=== PATIENT | male | born 1940 | race Caucasian/White ===

== ENCOUNTER 2017-03-13 13:06 | Observation (INO) | payer MEDICARE ==
[~2017-03-13] VITALS: Ht 180.3 cm; Wt 104.0 kg
[~2017-03-13 13:06] MED LIST: CITA40TA4 PO; COUM7.5T PO; DOCU1CAP39 PO; ENOX100P SQ; GABA100C4 PO; LISI40TA PO; NOVONP2 SQ; NOVORP2 SQ; OMEP20CA2 PO; OXYC1TAB63 PO; PERC5TAB12 PO; VITA10003 PO; WARF-18 PO; WARF-23 PO; ZOCO40TA PO
[2017-03-13 13:09] VITALS: BP 127/78; PULSE 85; RESP 18; TEMP 98.4; O2SAT 96
[2017-03-13] MEDS ORDERED: SODIUM CHLORIDE 0.9% FLUSH 10 ML FLUSH IVF PRN (13:30)
[2017-03-13] MEDS ORDERED: ACETAMINOPHEN 325 MG TAB PO ONE (13:30)
[2017-03-13] MEDS ORDERED: PROCHLORPERAZINE INJ 10 MG/2 ML VIAL IVP ONE (13:30)
[2017-03-13] MEDS ORDERED: diphenhydrAMINE HCL 50 MG/ML VIAL IVP ONE (13:30)
[2017-03-13] MEDS ORDERED: MORPHINE SULFATE 4 MG/ML INJ IV PUSH ONE (13:30)
[2017-03-13] MEDS ORDERED: SODIUM CHLOR 0.9% 1000 ML INJ 1,000 ML IV SCH (13:30)
[2017-03-13 13:32] VITALS: O2SAT 94
--- NOTE | 2017-03-13 13:41 | PD ---
HPI Chief Complaint: Neuro Symptoms/ Deficits Time Seen by Provider: 13:19 Travel History International Travel<30 days: No Contact w/Intl Traveler<30days: No Traveled to known affect area: No History of Present Illness HPI The patient is a 76-year-old male who presents to the emergency department for headache. The patient states he has had intermittent headaches for the last 6 weeks, they worsen the morning, but present throughout the day. The headaches do wax and wane and occasionally associated with vision changes and generalized weakness the lower extremities. The patient was on vacation in [place], [place], when he was seen in the emergency department and underwent a CT the brain and MRI the brain which are apparently were unremarkable according to the . The patient return him and was seen by his neurologist, Dr. Barbosa, as well as their mid-level practitioner last week. He was prescribed medications, however, was unable to take the medication secondary to interference with his current medications for diabetes. The patient continues to have headaches, is also had a decline in his memory according to the . The patient went to restoration earlier today, however, was unable to ambulate out of the restoration, the patient required 4 people to help him get to the car. The patient denies any focal deficits, but does complain of generalized weakness the lower extremities. The also states the patient had some dysarthria earlier today which has resolved. Symptoms are moderate, there are no current alleviating or exacerbating factors. He denies any fever or posterior neck pain. PFSH Past Medical History Hx Anticoagulant Therapy: Yes (WARFARIN) Atrial Fibrillation: Yes Anxiety: No Depression: Yes Heart Rhythm Problems: Yes Cancer: Yes (PROSTATE) Cardiac Catheterization: Yes Cardiovascular Problems: Yes ([place]ABG, [place]) High Cholesterol: Yes Chemotherapy: No Chest Pain: Yes Congestive Heart Failure: No Cerebrovascular Accident: Yes Coronary Artery Disease: Yes Diabetes: Yes Patient Takes Glucophage: No Endocrine: Yes Gastrointestinal Disorders: Yes GERD: Yes Glaucoma: No Genitourinary: Yes (URINARY INCONTANCE) Hepatitis: No Hiatal Hernia: No Hypertension: Yes Immune Disorder: No Implanted Vascular Access Dvce: Yes Medical other: Yes (SCAR TISSUE IN BLADDER, URETHRA, CAN'T BE CATHETERIZED) Musculoskeletal: Yes (RLS) Neurologic: Yes Psychiatric: Yes Reproductive: No Respiratory: Yes Integumentary: No Migraines: No Radiation Therapy: No Renal Failure: No Seizures: No Thyroid Disease: No Triglycerides - High: Yes Ulcer: No Tetanus Vaccination: < 5 Years Influenza Vaccination: Yes Past Surgical History Body Medical Devices: CARDIAC STENT X1 Cardiac Surgery: Yes (STENT PLACEMENT, CARDIAC CATHERIZATION, MITRAL REPAIR, AORTIC VALVE REPLACE) Coronary Artery Bypass Graft: Yes Coronary Stent: Yes Eye Surgery: Yes (BILATERAL CATARACT SURGERY) Genitourinary Surgery: Yes (PROSTATECTOMY, bladder surgery ) Joint Replacement: Yes (LEFT KNEE) Pacemaker: No Thoracic Surgery: Yes (2 WAY BYPASS) Other Surgery: Yes (PROSTATE,LEFT KNEE,BACK,BILAT SHOULDER, BILAT CARPAL TUNNEL ) Social History Alcohol Use: No (DENIES) Tobacco Use: No (DENIES) Substance Use: No Allergies-Medications (Allergen,Severity, Reaction): Coded Allergies: Unable to Assess (Unverified Allergy, Unknown, 12/14/16) obtunded No Known Allergies (Verified , 04/01/16) Reported Meds & Prescriptions Reported Meds & Active Scripts Active Percocet (Oxycodone-Acetaminophen) 5-325 mg Tab 1 Tab PO Q6H PRN Coumadin (Warfarin) 7.5 Mg Tab 7.5 Mg PO DAILY@16 30 Days Lovenox Inj (Enoxaparin Sodium) 100 Mg/Ml Syr 100 Mg SQ BID 5 Days Dok (Docusate Sodium) 100 Mg Cap 100 Mg PO BID 30 Days Oxycodone-Acetaminophen 5-325 mg Tab 1 Tab PO Q6H PRN Reported Novolin R Inj (Insulin Human Regular) 1,000 Unit/10 Ml Vial 15 Units SQ BID Novolin N Inj (Insulin Human NPH) 1,000 Unit/10 Ml Vial 30 Units SQ BID Warfarin 5 Mg Tab 5 Mg PO MOWEDFRI Warfarin 2.5 Mg Tab 2.5 Mg PO SUTUESTHURSSAT Zocor (Simvastatin) 40 Mg Tab 40 Mg PO HS Omeprazole 20 Mg Cap 20 Mg PO HS Lisinopril 40 Mg Tab 40 Mg PO DAILY Gabapentin 100 Mg Cap 100 Mg PO HS Citalopram (Citalopram Hydrobromide) 40 Mg Tab 40 Mg PO DAILY Vitamin D-3 (Cholecalciferol) 1,000 Unit Tab 5,000 Units PO DAILY Review of Systems Except as stated in HPI: all other systems reviewed are Neg General / Constitutional: No: Fever Eyes: Positive: Blurred Vision (intermittent, currently resolved) HENT: Positive: Headaches, No: Neck Pain Cardiovascular: No: Chest Pain or Discomfort Respiratory: No: Shortness of Breath Gastrointestinal: No: Nausea, Vomiting, Abdominal Pain Musculoskeletal: Positive: Weakness (weakness the lower extremities bilaterally ) Neurologic: Positive: Weakness (weakness to lower extremity is bilaterally), Headache, Change in Mentation, No: Paresthesia, Sensory Disturbance Physical Exam Narrative GENERAL: Awake, alert, nontoxic-appearing 76-year-old male who appears his stated age and is in no acute respiratory distress. SKIN: Focused skin assessment warm/dry. HEAD: Atraumatic. Normocephalic. EYES: Pupils equal and round. 3 mm bilateral and reactive. EOMs are intact. Patient is able to see fingers at a distance of 2 feet without difficulty. ENT: No nasal bleeding or discharge. Mucous membranes pink and moist. NECK: Trachea midline. No JVD. No meningeal signs. CARDIOVASCULAR: Regular rate and rhythm. No murmur appreciated. RESPIRATORY: No accessory muscle use. Clear to auscultation. Breath sounds equal bilaterally. GASTROINTESTINAL: Abdomen soft, obese, small area of ecchymosis anterior right abdomen secondary to previous injection. MUSCULOSKELETAL: No obvious deformities. No clubbing. No cyanosis. No edema. NEUROLOGICAL: Awake and alert. No obvious cranial nerve deficits. Motor grossly within normal limits. Normal speech. No drift of the upper extremities. Unable to hold his legs up off the bed for more than 2 seconds bilaterally. Alert and oriented 3. No dysarthria noted upon speech. PSYCHIATRIC: Appropriate mood and affect; insight and judgment normal. Data Data Last Documented VS Vital Signs Date Time Temp Pulse Resp B/P (MAP) Pulse Ox O2 Delivery O2 Flow Rate FiO2 03/13/17 13:32 94 Room Air 03/13/17 13:27 77 18 03/13/17 13:09 98.4 Orders Orders Complete Blood Count With Diff (03/13/17 13:30) Comprehensive Metabolic Panel (03/13/17 13:30) Westergren Sedimentation Rate (03/13/17 13:30) C-Reactive Protein (Crp) (03/13/17 13:30) Prothrombin Time / Inr (Pt) (03/13/17 13:30) Act Partial Throm Time (Ptt) (03/13/17 13:30) Ct Brain W/O Iv Contrast(Rout) (03/13/17 13:30) Ecg Monitoring (03/13/17 13:30) Iv Access Insert/Monitor (03/13/17 13:30) Oximetry (03/13/17 13:30) Sodium Chloride 0.9% Flush (Ns Flush) (03/13/17 13:30) Acetaminophen (Tylenol) (03/13/17 13:30) Prochlorperazine Inj (Compazine Inj) (03/13/17 13:30) Diphenhydramine Inj (Benadryl Inj) (03/13/17 13:30) Morphine Inj (Morphine Inj) (03/13/17 13:30) Sodium Chlor 0.9% 1000 Ml Inj (Ns 1000 M (03/13/17 13:30) Admit Order (Ed Use Only) (03/13/17 15:27) Labs Laboratory Tests Test 03/13/17 13:30 White Blood Count 9.0 TH/MM3 Red Blood Count 4.71 MIL/MM3 Hemoglobin 14.3 GM/DL Hematocrit 40.9 % Mean Corpuscular Volume 86.9 FL Mean Corpuscular Hemoglobin 30.4 PG Mean Corpuscular Hemoglobin Concent 35.0 % Red Cell Distribution Width 14.5 % Platelet Count 227 TH/MM3 Mean Platelet Volume 9.2 FL Neutrophils (%) (Auto) 77.4 % Lymphocytes (%) (Auto) 12.4 % Monocytes (%) (Auto) 7.0 % Eosinophils (%) (Auto) 2.2 % Basophils (%) (Auto) 1.0 % Neutrophils # (Auto) 7.0 TH/MM3 Lymphocytes # (Auto) 1.1 TH/MM3 Monocytes # (Auto) 0.6 TH/MM3 Eosinophils # (Auto) 0.2 TH/MM3 Basophils # (Auto) 0.1 TH/MM3 CBC Comment DIFF FINAL Differential Comment Erythrocyte Sedimentation Rate 11 mm/hr Prothrombin Time 17.4 SEC Prothromb Time International Ratio 1.5 RATIO Activated Partial Thromboplast Time 29.2 SEC Blood Urea Nitrogen 24 MG/DL Creatinine 1.53 MG/DL Random Glucose 199 MG/DL Total Protein 6.9 GM/DL Albumin 3.1 GM/DL Calcium Level 8.6 MG/DL Alkaline Phosphatase 95 U/L Aspartate Amino Transf (AST/SGOT) 23 U/L Alanine Aminotransferase (ALT/SGPT) 24 U/L Total Bilirubin 0.4 MG/DL Sodium Level 138 MEQ/L Potassium Level 4.5 MEQ/L Chloride Level 105 MEQ/L Carbon Dioxide Level 22.9 MEQ/L Anion Gap 10 MEQ/L Estimat Glomerular Filtration Rate 44 ML/MIN C-Reactive Protein 0.72 MG/DL [facility] Medical Decision Making Medical Screen Exam Complete: Yes Emergency Medical Condition: Yes Medical Record Reviewed: Yes Interpretation(s) Last Impressions Head CT 03/13/17 1330 Signed Impressions: Service Date/Time: Monday, March 13, 2017 13:44 - CONCLUSION: 1. Chronic changes with cortical and central atrophy and severe periventricular and scattered deep white matter tracts areas of small vessel ischemic demyelination. 2. Old left occipital infarct. 3. Nothing acute Garrick Evangelista MD Laboratory Tests Test 03/13/17 13:30 White Blood Count 9.0 TH/MM3 Red Blood Count 4.71 MIL/MM3 Hemoglobin 14.3 GM/DL Hematocrit 40.9 % Mean Corpuscular Volume 86.9 FL Mean Corpuscular Hemoglobin 30.4 PG Mean Corpuscular Hemoglobin Concent 35.0 % Red Cell Distribution Width 14.5 % Platelet Count 227 TH/MM3 Mean Platelet Volume 9.2 FL Neutrophils (%) (Auto) 77.4 % Lymphocytes (%) (Auto) 12.4 % Monocytes (%) (Auto) 7.0 % Eosinophils (%) (Auto) 2.2 % Basophils (%) (Auto) 1.0 % Neutrophils # (Auto) 7.0 TH/MM3 Lymphocytes # (Auto) 1.1 TH/MM3 Monocytes # (Auto) 0.6 TH/MM3 Eosinophils # (Auto) 0.2 TH/MM3 Basophils # (Auto) 0.1 TH/MM3 CBC Comment DIFF FINAL Differential Comment Erythrocyte Sedimentation Rate 11 mm/hr Prothrombin Time 17.4 SEC Prothromb Time International Ratio 1.5 RATIO Activated Partial Thromboplast Time 29.2 SEC Blood Urea Nitrogen 24 MG/DL Creatinine 1.53 MG/DL Random Glucose 199 MG/DL Total Protein 6.9 GM/DL Albumin 3.1 GM/DL Calcium Level 8.6 MG/DL Alkaline Phosphatase 95 U/L Aspartate Amino Transf (AST/SGOT) 23 U/L Alanine Aminotransferase (ALT/SGPT) 24 U/L Total Bilirubin 0.4 MG/DL Sodium Level 138 MEQ/L Potassium Level 4.5 MEQ/L Chloride Level 105 MEQ/L Carbon Dioxide Level 22.9 MEQ/L Anion Gap 10 MEQ/L Estimat Glomerular Filtration Rate 44 ML/MIN C-Reactive Protein 0.72 MG/DL Differential Diagnosis Differential diagnosis includes normal pressure hydrocephalus, migraine, intracranial hemorrhage, intracranial tumor, subarachnoid hemorrhage, encephalitis, meningitis, temporal arteritis, sinusitis, pseudotumor cerebri. Narrative Course IV was established, labs are drawn and sent, and the patient was placed on cardiac telemetry monitoring and continuous pulse oximetry monitoring. Stat CT the brain was obtained as the patient is on warfarin. The did not have copies of the previous CT or MRI reports. The patient was administered morphine , Compazine, Benadryl, Tylenol, placed on IV fluids. A stat lumbar puncture was not performed as the patient is on warfarin, he may benefit from lumbar puncture to evaluate for etiology of the headache, however, he will need to be taken off of the Coumadin prior to lumbar puncture. The patient's INR was 1.5, no evidence of hemorrhage on CT, though the patient does have evidence of old infarct. The patient does have a history of atrial fibrillation for which she takes Coumadin. The patient's headache did improve somewhat, however, he was drowsy and unable to ambulate. The does state the patient has had some ataxia and difficulty ambulating recently. The patient may benefit from 23 hour observation, input from his neurologist for possible lumbar puncture, and physical therapy evaluation. The patient may have normal pressure hydrocephalus versus another neurologic disorder. The patient's primary physician is Dr. Wolf, therefore, the on-call medical service was paged for admission. Physician Communication Physician Communication The on-call medical service was paged for 23 hour observation. I discussed the patient with the residents who agreed with admission. Diagnosis Primary Impression: Cephalgia Qualified Codes: R51 - Headache Additional Impression: Ataxia Admitting Information Admitting Physician Requests: Observation Condition: Stable Daniel Knapp MD Mar 13, 2017 13:41
[2017-03-13 14:01] LABS: BASOPHIL # 0.1 TH/MM3 (0-0.2); EOSINOPHIL # 0.2 TH/MM3 (0-0.4); EOSINOPHIL % 2.2 % (0.0-4.0); HEMATOCRIT 40.9 % (39.0-51.0); HEMO FLAGS DIFF FINAL; LYMPH % 12.4 % (9.0-44.0); LYMPHOCYTE # 1.1 TH/MM3 (1.0-4.8); MEAN CELL VOLUME 86.9 FL (80.0-100.0); MEAN CORPUSCULAR HEMOGLOBIN 30.4 PG (27.0-34.0); NEUT % 77.4 % (16.0-70.0); PLATELET COUNT 227 TH/MM3 (150-450); RED BLOOD COUNT 4.71 MIL/MM3 (4.50-5.90); RED CELL DISTRIBUTION WIDTH 14.5 % (11.6-17.2)
[2017-03-13 14:09] LABS: APTT (PATIENT) 29.2 SEC (24.3-30.1); INTERNATIONAL NORMALIZED RATIO 1.5 RATIO; PROTHROMBIN TIME - PATIENT 17.4 SEC (9.8-11.6)
[2017-03-13 14:28] LABS: ALKALINE PHOSPHATASE 95 U/L (45-117); ALT (GPT) 24 U/L (12-78); ANION GAP 10 MEQ/L (5-15); AST (GOT) 23 U/L (15-37); BICARBONATE 22.9 MEQ/L (21.0-32.0); BLOOD UREA NITROGEN 24 MG/DL (7-18); CHLORIDE 105 MEQ/L (98-107); GLOMERULAR FILTRATION RATE 44 ML/MIN (>89); POTASSIUM 4.5 MEQ/L (3.5-5.1); SODIUM (NA) 138 MEQ/L (136-145); TOTAL BILIRUBIN ADULT 0.4 MG/DL (0.2-1.0)
--- NOTE | 2017-03-13 14:28 | RADRPT ---
EXAM DATE/TIME: 03/13/2017 13:44 [facility] COMPARISON: CT BRAIN W/O CONTRAST, September 26, 2015, 14:09. INDICATIONS : Headache and lower extremity weakness. RADIATION DOSE: 56.42 CTDIvol (mGy) MEDICAL HISTORY : Cerebrovascular disease. Cardiovascular disease Hypertension.MD; left eye macular hole SURGICAL HISTORY : CABG ENCOUNTER: Initial ACUITY: 2 months PAIN SCALE: 6/10 LOCATION: cranial TECHNIQUE: Multiple contiguous axial images were obtained of the head. Using automated exposure control and adj ustment of the mA and/or kV according to patient size, radiation dose was kept as low as reasonably a chievable to obtain optimal diagnostic quality images. DICOM format image data is available electro nically for review and comparison. FINDINGS: CEREBRUM: Focal encephalomalacia in the left occiput is characteristic of an old left [employer] branch vessel infarct . Cortical and central atrophy with severe periventricular and deep white matter tracts small vessel ischemic demyelination. Ventricles are midline. Nothing acute. POSTERIOR FOSSA: The cerebellum and brainstem are intact. The 4th ventricle is midline. The cerebellopontine angle i s unremarkable. EXTRACRANIAL: The visualized portion of the orbits is intact. SKULL: The calvaria is intact. No evidence of skull fracture. CONCLUSION: 1. Chronic changes with cortical and central atrophy and severe periventricular and scattered deep wh ite matter tracts areas of small vessel ischemic demyelination. 2. Old left occipital infarct. 3. Nothing acute Garirck Evangelista MD on March 13, 2017 at 14:25 Board Certified Radiologist. This report was verified electronically.
[2017-03-13 16:30] VITALS: BP 110/76; PULSE 76; RESP 18; O2SAT 98
--- NOTE | 2017-03-13 16:36 | HHI.HP ---
[facility] Service Family Medicine Primary Care Physician Jenny Javed Wolf Admission Diagnosis intractable cephalgia, ataxia, rule out NPH Diagnoses: International Travel<30 Days: No Contact w/Intl Traveler<30days: No Known Affected Area: No History of Present Illness History obtained from patient and his . 76-year-old male with extensive past medical history including atrial fibrillation, prior stroke, prior myocardial infarction, diabetes, and hypertension presenting with a one-day history of lower extremity weakness bilaterally in the setting of 6 weeks of progressive ataxia, intermittent headaches, and lightheadedness/dizziness. This morning at [facility] around 1100, he was walking with his baseline unsteady gait admitted to the seats. When mass was over, he had difficulty standing up, and then later cannot get into the car due to leg weakness. When he arrived home, he had to be supported by family members because his legs gave out on him. Over the last 6 weeks, his family has also noted that he is more sensitive to sound and lights and has complained of intermittent vision changes including color disturbances and dark vision. Over the last 6 weeks, he has also had some episodes of incontinence of bladder. Other than the weakness in his legs today and these symptoms over the last 6 weeks he has felt normal. (Celestino Del Rosario MD R2) Review of Systems Constitutional: DENIES: Fatigue, Fever, Weight loss, Chills Eyes: COMPLAINS OF: Vision loss, Photosensitivity, DENIES: Blurred vision, Eye inflammation, Eye pain Ears, nose, mouth, throat: DENIES: Tinnitus, Hearing loss, Throat pain, Ear Pain Respiratory: COMPLAINS OF: Shortness of breath (a little bit yesterday, resolved), DENIES: Cough, Wheezing Cardiovascular: COMPLAINS OF: Chest pain (2-3 days ago, resolved), Palpitations , DENIES: Syncope, Dyspnea on Exertion, Lower Extremity Edema, Orthopnea Gastrointestinal: DENIES: Abdominal pain, Black stools, Bloody stools, Constipation, Diarrhea, Nausea, Vomiting Genitourinary: COMPLAINS OF: Urinary incontinence, DENIES: Urinary frequency, Urgency, Dysuria Musculoskeletal: DENIES: Joint pain, Muscle aches Integumentary: DENIES: Abnormal pigmentation, Rash Hematologic/lymphatic: DENIES: Bruising Neurologic: COMPLAINS OF: Abnormal gait (unsteady/ataxic), Headache, Localized weakness (BLE), Poor Balance, DENIES: Paresthesias, Seizures, Speech Problems, Tremor Psychiatric: COMPLAINS OF: Anxiety (Intermittent), DENIES: Confusion, Depression (Celestino Del Rosario MD R2) Past Family Social History Past Medical History CVA [place] x2 (s/p stents x2) DM HTN CHF AFib Past Surgical History AVR with mitral valve repair ureteral sphincter repair 2017 rotator cuff surgery bilaterally carpal tunnel surgery bilaterally total knee replacement (laterality unknown) (Celestino Del Rosario MD R2) Allergies: Coded Allergies: No Known Allergies (Verified Allergy, Unknown, 03/13/17) Unable to Assess (Unverified Allergy, Unknown, 12/14/16) obtunded Family History sister and mother had heart disease Social History Tob: doesn't smoke Alc: doesn't drink Drugs: none (Celestino Del Rosario MD R2) Physical Exam Vital Signs Vital Signs Date Time Temp Pulse Resp B/P (MAP) Pulse Ox O2 Delivery O2 Flow Rate FiO2 03/13/17 15:04 18 03/13/17 14:08 18 03/13/17 13:32 94 Room Air 03/13/17 13:27 77 18 95 Room Air 03/13/17 13:09 98.4 85 18 127/78 (94) 96 Physical Exam GENERAL: WDWN adult white male sitting up in bed in NAD SKIN: No rashes, ecchymoses or lesions. Cool and dry. HEAD: NC/AT EYES: PERRL. EOMI. No conjunctival injection or drainage. ENT: MMM, OP without erythema, tonsillar swelling, or exudate. NECK: Very large neck circumference. Supple, no lymphadenopathy. CARDIOVASCULAR: NRRR. Normal S1/S2. No MRG RESPIRATORY: CTAB. No crackles or wheezes. GASTROINTESTINAL: Obese. Abdomen soft, non-distended, non-tender. No hepato- splenomegaly or palpable masses. MUSCULOSKELETAL: Extremities without clubbing, cyanosis, or edema. NEUROLOGICAL: Asleep and snoring heavily, but easily arouses to awake and alert. Cranial nerves II through XII intact to specific testing. Sensation intact over all dermatomes including medial thighs bilaterally. Strength 5/5 in all major muscle groups (including LUE which was extremity affected by prior stroke) except strength 2/5 bilaterally on hip flexion and knee extension/ flexion. Dorsiflexion and plantarflexion of bilateral feet 5/5 strength. Finger- to-nose testing normal. Repetition intact. Oriented x3. Naming intact with good fund of knowledge. Normal speech. Laboratory Laboratory Tests Test 03/13/17 13:30 White Blood Count 9.0 Red Blood Count 4.71 Hemoglobin 14.3 Hematocrit 40.9 Mean Corpuscular Volume 86.9 Mean Corpuscular Hemoglobin 30.4 Mean Corpuscular Hemoglobin Concent 35.0 Red Cell Distribution Width 14.5 Platelet Count 227 Mean Platelet Volume 9.2 Neutrophils (%) (Auto) 77.4 Lymphocytes (%) (Auto) 12.4 Monocytes (%) (Auto) 7.0 Eosinophils (%) (Auto) 2.2 Basophils (%) (Auto) 1.0 Neutrophils # (Auto) 7.0 Lymphocytes # (Auto) 1.1 Monocytes # (Auto) 0.6 Eosinophils # (Auto) 0.2 Basophils # (Auto) 0.1 CBC Comment DIFF FINAL Differential Comment Erythrocyte Sedimentation Rate 11 Prothrombin Time 17.4 Prothromb Time International Ratio 1.5 Activated Partial Thromboplast Time 29.2 Blood Urea Nitrogen 24 Creatinine 1.53 Random Glucose 199 Total Protein 6.9 Albumin 3.1 Calcium Level 8.6 Alkaline Phosphatase 95 Aspartate Amino Transf (AST/SGOT) 23 Alanine Aminotransferase (ALT/SGPT) 24 Total Bilirubin 0.4 Sodium Level 138 Potassium Level 4.5 Chloride Level 105 Carbon Dioxide Level 22.9 Anion Gap 10 Estimat Glomerular Filtration Rate 44 C-Reactive Protein 0.72 (Celestino Del Rosario MD R2) Result Diagram: 03/13/17 1330 03/13/17 1330 Imaging Last Impressions Head CT 03/13/17 1330 Signed Impressions: Service Date/Time: Monday, March 13, 2017 13:44 - CONCLUSION: 1. Chronic changes with cortical and central atrophy and severe periventricular and scattered deep white matter tracts areas of small vessel ischemic demyelination. 2. Old left occipital infarct. 3. Nothing acute Garrick Evangelista MD (Celestino Del Rosario MD R2) Caprini VTE Risk Assessment Caprini VTE Risk Assessment: Mod/High Risk (score >= 2) (Celestino Del Rosario MD R2) Assessment and Plan Assessment and Plan 76 yo male with extensive cardiac history and prior stroke presenting with: (Celestino Del Rosario MD R2) Attending Attestation THIS CASE WAS DISCUSSED WITH THE RESIDENT PHYSICIANS. I HAVE REVIEWED THE RECORD AND AGREE WITH THE ABOVE NOTE AND PLAN OF CARE WAS DISCUSSED. I HAVE AUTHORIZED THE ORDER FOR ADMISSION TO AN IN-PATIENT STATUS. (Concetta Stuart MD) Problem List: (1) Neurological impairment in adult ICD Codes: G96.9 - Disorder of central nervous system, unspecified Status: Acute Plan: Acute lower extremity weakness bilaterally in setting of progressive ataxia with intermittent severe headaches and lightheadedness x6 weeks Headache resolved in ER after Compazine, benadryl, morphine, and tylenol Differential including NPH, spinal cord compromise, B12 deficiency, hypo/ hyperthyroidism CT head negative for acute process, showed chronic changes as noted above - Place under observation - Consulted neurology, appreciate recommendations - Outpatient neurologist Dr. Barbosa to evaluate in morning, may perform LP - Discussed with neurologist extrusion engineer Dr. Mccauley, recommended obtaining non- contrast MRI of spine including cervical & lumbar to r/o spinal cord compromise - Further work-up based on Dr. Barbosa's assessment - Outside tPA window, and clinically less likely to be stroke in any case ( isolated proximal LE weakness) - Holding warfarin for now given LP may be done in the morning, not currently in AFib - Telemetry (medical illness w/ cardiac history) - MRI brain w/o contrast to r/o NPH - Add B12, TSH to labs - Check UA given complicated urologic history - NPO; after bedside swallow assess may advance to regular diet - Neuro checks Q4H - Tylenol PRN pain 3-5 (headache) - Oxycodone 5 mg Q6H PRN pain 6-10 - Oxycodone 5 mg Q6H PRN BRKP (2) Acute kidney injury ICD Codes: N17.9 - Acute kidney failure, unspecified Plan: Likely pre-renal, suspect slightly poor PO intake - Gentle hydration with NS at 50 cc/hr (1/2 maintenance) due to h/o CHF (3) CAD S/P percutaneous coronary angioplasty ICD Codes: I25.10 - CAD S/P percutaneous coronary angioplasty; Z98.61 - Coronary angioplasty status Status: Chronic Plan: No current cardiac symptoms - Telemetry as above - Continue home statin (4) 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 and patient don't know insulin dose off the top of their head (it's at home) - insulin detemir 10 units BID - insulin aspart 5 units TIDAC - low dose insulin aspart sliding scale ACHS - AccuCheks AC, HS, 0300 - Standard hypoglycemia protocol (6) HTN (hypertension) ICD Codes: I10 - HTN (hypertension) Status: Chronic Plan: BP wnl - Continue home lisinopril (7) Systolic CHF with reduced left ventricular function, NYHA class 2 ICD Codes: I50.20 - Systolic CHF with reduced left ventricular function, NYHA class 2 Status: Acute Plan: Asymptomatic at present - Meds as above - Caution with fluids (8) Atrial fibrillation ICD Codes: I48.91 - Atrial fibrillation Status: Acute Plan: Rhythm currently sinus on telemetry. Initially was tachycardic likely due to pain, HR normalized after treating headache. - Telemetry as above - Holding warfarin for now given likelihood of LP tomorrow - INR on admission 1.5 (9) FEN Plan: Fluids: PO only (reported CHF) Electrolytes: Monitor and replete as needed Nutrition: See above DVT: SCDs Code status: No code / DNR (Celestino Del Rosario MD R2) Problem Qualifiers (1) HTN (hypertension): Qualified Codes: I10 - Essential (primary) hypertension (2) Atrial fibrillation: Qualified Codes: I48.0 - Paroxysmal atrial fibrillation Celestino Del Rosario MD R2 Mar 13, 2017 16:36 Concetta Stuart MD Mar 14, 2017 15:58
[2017-03-13] MEDS ORDERED: WARF-18 PO (16:41)
[2017-03-13] MEDS ORDERED: MAGNESIUM HYDROXIDE SUSP 30 ML CUP PO PRN (16:45)
[2017-03-13] MEDS ORDERED: BISACODYL 10 MG SUPP RECTAL PRN (16:45)
[2017-03-13] MEDS ORDERED: SODIUM CHLORIDE 0.9% FLUSH 10 ML FLUSH IV FLUSH PRN (16:45)
[2017-03-13] MEDS ORDERED: SENNOSIDES 8.6 MG TAB PO PRN (16:45)
[2017-03-13] MEDS ORDERED: NALOXONE HCL 0.4 MG/ML AMP IV PUSH PRN (16:45)
[2017-03-13] MEDS ORDERED: LACTULOSE SYRUP 20 GM/30 ML CUP PO PRN (16:45)
[2017-03-13] MEDS ORDERED: ENOXAPARIN SODIUM 30 MG/0.3 ML SYRINGE SQ SCH (17:00)
[2017-03-13 17:37] VITALS: BP 116/72; PULSE 69; RESP 18; TEMP 97.4; O2SAT 94
[2017-03-13 17:59] LABS: BLOOD, URINE NEG (NEG); COMMENT (UR) CULT NOT INDICATED; CULTURE IF INDICATED CULT NOT INDICATED; GLUCOSE,URINE TRACE mg/dL (NEG); KETONE, URINE NEG (NEG); NITRITE,URINE NEG (NEG); URINE COLOR YELLOW (YELLW/STRAW)
--- NOTE | 2017-03-13 18:35 | RADRPT ---
EXAM DATE/TIME: 03/13/2017 17:55 [facility] COMPARISON: No previous studies available for comparison. INDICATIONS : Intractable headaches. Lower extremity weakness. MEDICAL HISTORY : Cerebrovascular disease. Diabetes mellitus type 2. Hypertension. Myocardial infarction. SURGICAL HISTORY : Prostatectomy. CABG Orthopedic. Loop recorder. ENCOUNTER: Initial ACUITY: 1 day PAIN SCORE: 0/10 LOCATION: Paraspinal TECHNIQUE: Multiplanar multisequence MRI of the thoracic spine was performed. FINDINGS: VERTEBRA: Bone marrow signal is normal. Vertebral body height is maintained. ALIGNMENT: No anterolisthesis or retrolisthesis. CORD: Normal position and configuration. T1-T2: No disc herniation, canal stenosis, or neural foraminal stenosis. T2-T3: No disc herniation, canal stenosis, or neural foraminal stenosis. T3-T4: No disc herniation, canal stenosis, or neural foraminal stenosis. T4-T5: No disc herniation, canal stenosis, or neural foraminal stenosis. T5-T6: No disc herniation, canal stenosis, or neural foraminal stenosis. T6-T7: No disc herniation, canal stenosis, or neural foraminal stenosis. T7-T8: No disc herniation, canal stenosis, or neural foraminal stenosis. T8-T9: No disc herniation, canal stenosis, or neural foraminal stenosis. T9-T10: No disc herniation, canal stenosis, or neural foraminal stenosis. T10-T11: No disc herniation, canal stenosis, or neural foraminal stenosis. T11-T12: No disc herniation, canal stenosis, or neural foraminal stenosis. T12-L1: No disc herniation, canal stenosis, or neural foraminal stenosis. CONCLUSION: No significant disc herniation or spinal canal stenosis is present. Masoud Hatch MD on March 13, 2017 at 18:30 Board Certified Radiologist. This report was verified electronically.
--- NOTE | 2017-03-13 18:39 | RADRPT ---
EXAM DATE/TIME: 03/13/2017 17:55 [facility] COMPARISON: No previous studies available for comparison. INDICATIONS : Intractable headaches. Lower extremity weakness. MEDICAL HISTORY : Cerebrovascular disease. Myocardial infarction. Diabetes mellitus type 2. SURGICAL HISTORY : CABG Prostatectomy. Loop recorder. Orthopedic ENCOUNTER: Initial ACUITY: 1 day PAIN SCORE: 0/10 LOCATION: Paraspinal TECHNIQUE: Multiplanar multisequence MRI of the lumbar spine was performed without contrast. FINDINGS: The most caudal appearing lumbar vertebra is numbered as L5. VERTEBRAE: There are chronic endplate changes at the L3-L4 level. Vertebral body height is maintained. No fractu re or compression deformity. There is no anterolisthesis or retrolisthesis. An 18 mm hemangioma is pr esent within the T12 vertebral body. CONUS: Normal level and configuration. T12-L1: No disc herniation, canal stenosis, or neural foraminal stenosis. L1-L2: There is a mild diffuse disc bulge with mild facet and ligamentum flavum hypertrophy. No spinal canal stenosis or neural foraminal stenosis is present. L2-L3: No disc herniation, canal stenosis, or neural foraminal stenosis. There is mild bilateral facet hyper trophy. L3-L4: There is decreased disc height with diffuse posterior osteophytic ridging and mild facet hypertrophy. These changes cause mild spinal canal stenosis. There is mild right neural foraminal narrowing. Sheriff Deputy husam endplate changes are present on the right. L4-L5: There is decreased disc height with disc desiccation and a left paracentral disc protrusion which eff aces the left lateral recess. There is moderate facet hypertrophy. No significant spinal canal stenos is is present. There is mild left neural foraminal narrowing. L5-S1: There is disc desiccation. Bilateral facet hypertrophy is present. There is no canal stenosis or neur al foraminal narrowing. Surrounding structures demonstrate no acute finding. There are bilateral renal cysts. CONCLUSION: There are degenerative changes at multiple levels in the lumbar spine with mild spinal canal stenosis at L3-L4. Remaining levels demonstrate no significant stenosis. There are areas of mild neural gerber inal narrowing, as above. Masoud Hatch MD on March 13, 2017 at 18:34 Board Certified Radiologist. This report was verified electronically.
[2017-03-13] MEDS ORDERED: GLUCAGON 1 MG/ML VIAL OTHER PRN (19:00)
[2017-03-13] MEDS ORDERED: DEXTROSE 50% IN WATER 50 ML VIAL(D50) IV PUSH PRN (19:00)
--- NOTE | 2017-03-13 19:05 | RADRPT ---
EXAM DATE/TIME: 03/13/2017 17:55 [facility] COMPARISON: No previous studies available for comparison. INDICATIONS : Intractable headaches. Lower extremity weakness. MEDICAL HISTORY : Cerebrovascular disease. Hypertension. Diabetes mellitus type 2. Myocardial infarction. SURGICAL HISTORY : Prostatectomy. CABG Orthopedic. Loop recorder. ENCOUNTER: Initial ACUITY: 1 day PAIN SCORE: 0/10 LOCATION: Paraspinal TECHNIQUE: Multiplanar, multisequence MRI examination of the cervical spine was performed. FINDINGS: Sagittal T1, T2 and inversion recovery images show minimal anterior fixation from C5-C7 with interver tebral disc prostheses. There is a minimal grade 1 anterolisthesis of C3 on 4. Vertebral body heights are maintained without fracture. Spinal canal is adequate throughout. Posterior fossa is radiographi luciana normal . C2-C3: The thecal sac has a normal configuration. There is no evidence of disc herniation or spinal canal s tenosis. The neural foramina are patent bilaterally. C3-C4: Small central disc protrusion. There is some bilateral facet hypertrophy with narrowing of the right neural foramina which may compromise the right C4 nerve root. Spinal canal and left neural foramina a re adequate C4-C5: Left facet hypertrophy with some encroachment on the left neural foramina. Very small central disc pr otrusion. I believe the spinal canal and neural foramina are adequate, however. C5-C6: Anteriorly fixated level. Spinal canal and neural foramina are patent C6-C7: Anteriorly fixated level. Spinal canal and neural foramina are patent C7-T1: The thecal sac has a normal configuration. There is no evidence of disc herniation or spinal canal s tenosis. The neural foramina are patent bilaterally. CONCLUSION: 1. 3 level anterior fixation from C5-C7. 2. Grade one anterolisthesis C3 on 4 with associated small central disc protrusion. Right foraminal n arrowing may compromise the right C4 nerve root. Spinal canal remains adequate. 3. Facet hypertrophy bilaterally at C4-5, left greater than right. Some encroachment on both neural f oramina bilaterally but I believe the spinal canal and neural foramina remain adequate. Garrick Evangelista MD on March 13, 2017 at 18:57 Board Certified Radiologist. This report was verified electronically.
--- NOTE | 2017-03-13 19:08 | RADRPT ---
EXAM DATE/TIME: 03/13/2017 17:55 [facility] COMPARISON: MRI BRAIN W/O CONTRAST, September 27, 2015, 11:33. INDICATIONS : Intractable headaches. Lower extremity weakness. MEDICAL HISTORY : Hypertension. Diabetes mellitus type 2. Cerebrovascular disease. Myocardial infarction. SURGICAL HISTORY : Prostatectomy. CABG Orthopedic. Loop recorder. ENCOUNTER: Initial ACUITY: 1 day PAIN SCORE: 0/10 LOCATION: Paraspinal TECHNIQUE: Multiplanar, multisequence MRI of the brain was performed without contrast. FINDINGS: CEREBRUM: Cortical and central atrophy. Old left occipital infarct with exvacuodilatation of the adjacent ventr icular system. No evidence of midline shift, mass lesion, hemorrhage or acute infarction. No extraa xial fluid collections are seen. The pituitary gland and suprasellar cistern are normal in configura tion. WHITE MATTER: Moderately severe periventricular and deep white matter tracts normal vessel ischemic demyelination. POSTERIOR FOSSA: The cerebellum and brainstem are intact. The 4th ventricle is midline. The cerebellopontine angle is unremarkable. The cerebellar tonsils are normal in position. DIFFUSION IMAGING: No focal areas of restricted diffusion are seen. No evidence of acute infarction. EXTRACRANIAL: The visualized portions of the orbits and paranasal sinuses are unremarkable. CONCLUSION: 1. Stable chronic changes with cortical and central atrophy, old left occipital infarct and moderatel y severe periventricular and deep white matter tracks well vessel ischemic demyelination. 2. Nothing acute. Garrick Evangelista MD on March 13, 2017 at 19:03 Board Certified Radiologist. This report was verified electronically.
[2017-03-13 19:43] VITALS: BP 135/79; PULSE 68; RESP 18; TEMP 98.1; O2SAT 95
[2017-03-13] MEDS: SODIUM CHLOR 0.9% 1000 ML INJ 1,000 ML IV SCH (20:08)
[2017-03-13] MEDS: DOCUSATE SODIUM 50 MG/SENNA 8.6 MG TAB PO SCH (21:02)
[2017-03-13] MEDS: GABAPENTIN 100 MG CAP PO SCH (21:02)
[2017-03-13] MEDS: PANTOPRAZOLE SOD 20 MG DELAYED RELEASE TAB PO SCH (21:02)
[2017-03-13] MEDS: PRAVASTATIN SOD 80 MG TAB PO SCH (21:02)
[2017-03-13] MEDS: SODIUM CHLORIDE 0.9% FLUSH 10 ML FLUSH IV FLUSH SCH (21:02)
[2017-03-13] MEDS: INSULIN DETEMIR 100 UNITS/ML VIAL SQ SCH (21:23)
[2017-03-13] MEDS: INSULIN ASPART SUPPLEMENTAL SCALE SQ SCH (21:23)
[2017-03-13 23:00] VITALS: O2SAT 96
[2017-03-14] VITALS (8 sets, daily range): BP systolic 112–168; BP diastolic 72–97; PULSE 66–87; RESP 18–22; TEMP 97.6–98.7; O2SAT 93–97
[2017-03-14 06:16] LABS: BICARBONATE 22.7 MEQ/L (21.0-32.0); POTASSIUM 4.1 MEQ/L (3.5-5.1)
--- NOTE | 2017-03-14 07:10 | MB ---
cc: UYEN LUND M.D. DATE OF CONSULTATION 03/14/2017 REASON FOR CONSULTATION Lower extremity weakness. HISTORY OF PRESENT ILLNESS Mr. Washburn is a very nice 76-year-old man who has had a several-month history of difficulty with severe headaches on a continuous basis as well as unsteadiness of gait and also notices upper extremity weakness for this period time. He states he has "pain all over." Yesterday when he woke up in the morning his legs were strong. He went to yazidism. He noted in yazidism that he began to experience a mild weakness of the legs with some difficulty getting up. This progressed throughout the day. Yesterday evening he went to dinner and had significant difficulty rising, had to have someone help him up at that time. This morning he feels stronger in the legs after resting. PAST MEDICAL HISTORY 1. History of coronary artery disease with CABG procedure. 2. History of atrial fibrillation for which he takes Coumadin. 3. History of previous stroke. 4. History of diabetes. 5. Hypertension. 6. AVR with mitral valve repair. 7. Ureteral sphincter repair. 8. Rotator cuff surgery. SOCIAL HISTORY No tobacco use. No alcohol use. MEDICATIONS 1. Coumadin. 2. Lisinopril 40 mg daily. 3. Celexa 40 mg daily. 4. Insulin. 5. Neurontin 100 mg at bedtime. 6. Protonix 40 mg daily. 7. Pravachol 80 mg daily. 8. Rosalie-Colace. 9. Levemir. 10. Insulin. 11. Tylenol. NEUROLOGIC EXAMINATION VITAL SIGNS: Blood pressure is 131/83, pulse 75, respiratory rate is 18, temperature 98 degrees. HIGHER CORTICAL FUNCTIONS: Normal. CRANIAL NERVES: Intact. MOTOR EXAM: He has 5/5 strength of all major groups in both upper extremities. This morning he has normal strength in the legs with 5/5 iliopsoas, quads, hamstring and tibialis anterior strength. SENSORY EXAM: Intact. REFLEXES: 1+ and symmetric in the upper and lower extremities. There is no Babinski present. IMAGING STUDIES MRI of the brain reveals stable chronic changes. He has an old left occipital infarction and mild atrophy and ischemic demyelinization. No acute change present. No acute stroke. CERVICAL SPINE MRI Anterior fixation C5-C7, mild anterolisthesis C3 and C4. He has got mild spondylosis mainly at C3-C4 causing compression of the right C4 nerve root. The cord is normal. There is no sign of any spinal cord compression. No significant stenosis. Thoracic MRI normal. Lumbar spine MRI - Mild stenosis L3-4 but no significant stenosis. LABORATORY DATA Sodium is 138, potassium 4.5, chloride 105, CO2 22.9, BUN is 24, creatinine 1.53, GFR is 44, glucose 199, calcium 8.6, AST 12, ALT is 24. C-reactive protein 0.72. TSH is 0.782. B12 2000. PT 17.4, INR 1.5, APTT 29. White count 9000, hemoglobin 14.3, hematocrit 40.9% platelet count 227,000. Sed rate 11. IMPRESSION Lower extremity weakness. At this time the weakness appears to have improved. He has normal strength. He does have a history of chronic headaches and ataxia. There is no evidence of any cord compression on the MRI of the spine. MRI of the brain reveals no acute stroke but there is no old previous stroke which is accounting for these symptoms. A sed rate is normal. No sign of polymyalgia rheumatica. B12 level is normal as well with no sign of combined systems degeneration to explain his weakness. RECOMMENDATIONS Lumbar puncture is being considered. I think that it is reasonable to proceed especially to rule out inflammatory conditions of the cord, although I think this would be less likely with improvement. Nonetheless LP would be helpful to further evaluate his headaches and ataxia. We will continue to hold the Coumadin for the lumbar puncture, also get a CPK to rule out myopathy, rheumatoid factor, SPEP, myasthenia gravis antibody panel. It is possible the statin could also be inducing some type of myopathy if the above workup is negative. MD JANNA Henao/YOSI /5:50 AM /7:01 AM
[2017-03-14] MEDS: ACETAMINOPHEN 325 MG TAB PO PRN (07:53)
[2017-03-14] MEDS: INSULIN ASPART 1,000 UNITS/10 ML VIAL SQ SCH ×3 (08:00→19:26)
[2017-03-14] MEDS: INSULIN ASPART SUPPLEMENTAL SCALE SQ SCH ×4 (08:00→21:52)
[2017-03-14 08:31] LABS: APTT (PATIENT) 30.2 SEC (24.3-30.1); INTERNATIONAL NORMALIZED RATIO 1.4 RATIO; PROTHROMBIN TIME - PATIENT 16.2 SEC (9.8-11.6)
[2017-03-14 08:41] LABS: RHEUMATOID FACTOR TRIGGER LESS THAN 10.0 IU/ML (0.0-14.9)
[2017-03-14 08:46] LABS: TOTAL PROTEIN SPE 6.2 GM/DL (6.0-7.6)
[2017-03-14] MEDS: SODIUM CHLORIDE 0.9% FLUSH 10 ML FLUSH IV FLUSH SCH ×2 (09:00→21:50)
--- NOTE | 2017-03-14 09:19 | PD.RAD ---
Post Procedure Progress Note Pre Procedure Diagnosis: (1) Neurological impairment in adult Post Procedure Diagnosis: (1) Neurological impairment in adult Procedure Date: Mar 14, 2017 Supervising Radiologist: Garrick Evangelista Proceduralist/Assist: Aaron Alberto RT(R), Francisco Burrell RT(R) Anesthesia: Local Plan of Activity Patient to Unit: Other (ed) Patient Condition: Good See PACS Report for procedural detail/treatment Spinal Procedure Lumbar Puncture L3-L4 Fluid Removal (CCs): 18 Fluid Description: Clear Puncture Time: 09:02 Garrick Evangelista MD Mar 14, 2017 09:19
--- NOTE | 2017-03-14 09:34 | RADRPT ---
EXAM DATE/TIME: 03/14/2017 08:20 [facility] COMPARISON: No previous studies available for comparison. INDICATIONS : Patient presents with headaches in need of lumbar puncture to rule out myelitis. MEDICAL HISTORY : Prostate cancer GERD HTN Diabetes Afib IN SURGICAL HISTORY : CABG 2 way bypass Left knee sx Low back disc removal Bilat rotator cuff Bilat carpal tunnel Aortic valve replacement Cardiac cath Mitral repair ENCOUNTER: Initial ACUITY: 2 months PAIN SCORE: 7/10 LOCATION: Headache LUMBAR PUNCTURE TIME: 09:02 hours FLUORO TIME: 0.8 minutes IMAGE SERIES: 1 ACCESS LEVEL: L2-3 FLUID: 18 cc of clear CSF was collected and sent to the laboratory for analysis. PROCEDURE : 1. Fluoroscopic guided lumbar puncture. The risks, benefits and alternatives to the procedure were explained and verbal and written consent w as obtained. The site was prepped in sterile fashion. Full sterile technique was used, including ca p, mask, sterile gloves and gown and a large sterile sheet. Hand hygiene and 2% chlorhexidine and/or betadine/alcohol prep was utilized per protocol for cutaneous antisepsis. The skin and subcutaneous tissues were infiltrated with local anesthetic solution. With fluoroscopic guidance the lumbar thecal sac was punctured at the level above. The fluid describ ed above was removed without difficulty. The patient tolerated the procedure well and there were no complications. CONCLUSION: Uncomplicated fluoroscopically guided lumbar puncture. Garrick Evangelista MD on March 14, 2017 at 9:29 Board Certified Radiologist. This report was verified electronically.
[2017-03-14 11:00] LABS: GROSS BLOOD TUBE #1 TRACE (0); GROSS BLOOD TUBE #2 TRACE (0); GROSS BLOOD TUBE #3 TRACE (0); GROSS BLOOD TUBE #4 0 (0); SUPERNATE COLOR TUBE #1 CLEAR (CLEAR); SUPERNATE COLOR TUBE #2 CLEAR (CLEAR); SUPERNATE COLOR TUBE #3 CLEAR (CLEAR); SUPERNATE COLOR TUBE #4 CLEAR (CLEAR); VOLUME TUBE # 1 3.1 ML; VOLUME TUBE # 2 3.3 ML; VOLUME TUBE # 3 3.1 ML; VOLUME TUBE # 4 7.8 ML
[2017-03-14 11:01] LABS: CSF LYMPHOCYTES 0 %; CSF NEUTROPHILS 0 %; WBC TUBE #4 0 /MM3 (0-10)
[2017-03-14] MEDS: INSULIN DETEMIR 100 UNITS/ML VIAL SQ SCH ×2 (13:00→21:51)
[2017-03-14] MEDS: SODIUM CHLOR 0.9% 1000 ML INJ 1,000 ML IV SCH (13:00)
[2017-03-14] MEDS: CITALOPRAM HYDROBROMIDE 40 MG TAB PO SCH (13:08)
[2017-03-14] MEDS: DOCUSATE SODIUM 50 MG/SENNA 8.6 MG TAB PO SCH ×2 (13:08→21:50)
[2017-03-14] MEDS: LISINOPRIL 20 MG TAB PO SCH (13:09)
--- NOTE | 2017-03-14 13:24 | HHI.FPPN ---
Problem Problem List: (1) Lower extremity weakness (2) Ataxia (3) Cephalgia (4) CAD (coronary artery disease) (5) Atrial fibrillation (6) HTN (hypertension) (7) DM (diabetes mellitus) Subjective Subjective 76 year old male with at least 6 weeks history of some generalized weakness, lower extremities more pronounces, some visual disturbances and some ataxic gait. Was being worked up as an outpatient for this with neurology, patient apparently has an underlying mild to moderate dementia as well. He was admitted through the ED for intractable PIZARRO and workup for the weakness and acute inability to ambulate. Apparently the day of admission patient was unable to walk at all on his own and on admission was unable to lift Lower legs at all on his own and so they brought him into the ED. Upon evaluation this morning -- the patient states headache is much better to a level 4/10 and is tolerable. His weakness appears improved and he was able to ambulate from his bed to the stretcher to get the LP done in radiology. Denies any new neurologic issues at this time ROS: Gen -- no fevers, chills, GI - neg -- urinary incontinence and leakage is common for this patient ( s/p ureteral sphincter repair) Cards -- no CP, SOB, SANTOS otw negative except per HPI Past Medical History CVA OK x2 (s/p stents x2) DM HTN CHF AFib Past Surgical History AVR with mitral valve repair ureteral sphincter repair 2017 rotator cuff surgery bilaterally carpal tunnel surgery bilaterally total knee replacement Allergies: none Family History Noncontributory Social History -- negative ETOH, tob or illicits. Hospital Objective Objective Laboratory Tests - Abnormals Test 03/13/17 13:30 03/13/17 17:43 03/14/17 04:25 03/14/17 07:47 Neutrophils (%) (Auto) 77.4 % Prothrombin Time 17.4 SEC 16.2 SEC Blood Urea Nitrogen 24 MG/DL 24 MG/DL Creatinine 1.53 MG/DL Random Glucose 199 MG/DL 107 MG/DL Albumin 3.1 GM/DL Estimat Glomerular Filtration Rate 44 ML/MIN 57 ML/MIN C-Reactive Protein 0.72 MG/DL Vitamin B12 Level GREATER THAN 2000 PG/ML Activated Partial Thromboplast Time 30.2 SEC Total Creatine Kinase 37 U/L Test 03/14/17 09:02 CSF Gross Blood (Tube 1) TRACE CSF RBC (Tube 4) 5 /MM3 CSF Total Protein 80.9 MG/DL Vital Signs 03/13/17 03/13/17 03/13/17 03/13/17 13:27 13:32 14:08 15:04 Pulse 77 Resp 18 18 18 B/P (MAP) Pulse Ox 95 94 O2 Delivery Room Air Room Air 03/13/17 03/13/17 03/13/17 03/13/17 16:30 16:45 17:37 19:43 Temp 97.4 98.1 Pulse 76 69 68 Resp 18 18 18 B/P (MAP) 110/76 (87) 116/72 (87) 135/79 (97) Pulse Ox 98 94 95 O2 Delivery Room Air 03/13/17 03/14/17 03/14/17 03/14/17 23:00 00:00 03:49 07:37 Temp 97.8 98.7 97.7 Pulse 87 75 66 Resp 18 18 20 B/P (MAP) 112/72 (85) 131/83 (99) 168/97 (120) Pulse Ox 96 95 97 95 FiO2 21 03/14/17 03/14/17 08:53 12:01 Temp 98.2 Pulse 68 Resp 20 20 B/P (MAP) 165/89 (114) Pulse Ox 97 INTAKE & OUTPUT 03/15/17 07:00 Output Total 600 ml Balance -600 ml Physical exam O. CONSTITUTIONAL/GEN: normally nourished, in NAD. EYES: conjunctiva normal, PERRLA, EOMI. ENT: Mouth and pharynx normal. NECK: thyroid midline, carotids symmetrical, no bruits LUNGS: clear A-P, respiratory effort is normal. CARDIOVASCULAR: RR without murmur or gallop. No significant edema. GI/ABD: soft without masses, without organomegaly. : no CVA tenderness NEURO: CN intact, cerebellar testing normal, strength equal and symmetrical all 4 ext - 5/5, normal reflexes and normal sensation SKIN: color normal, no rashes noted. HEME/LYMPH: no bruising, petechia or significant adenopathy MUSC: back is normal in appearance. Extremities are normal in appearance. PSYCH/MENTAL STATUS: Alert and oriented x 3. Assessment Assessment: (1) Ataxia (2) Cephalgia (3) Lower extremity weakness (4) Atrial fibrillation (5) HTN (hypertension) (6) DM (diabetes mellitus) (7) CAD S/P percutaneous coronary angioplasty (8) FEN Assessment 76 year old man with h/o CVA, CAD, DM, AFib, dementia, HTN with 6 week history of ataxia with a sudden decline in strength the day of admission with severe headache. 1. Neurologically -- Lower extremity weakness has resolved and patient is back at his baseline. He states the ataxia is unchanged. Headache is remarkably improved to 4/10 during ED treatment with compazine, Benadryl, morphine and Tylenol. . CT brain and MRI brain consistent with old left occipital infarct and severe periventricular and white matter small vessel ischemic demyelination. MRI spine was not revealing for acute issues or evidence of cord compression. Neurology has been consulted and LP done and their workup is pending at this time. 2. Cephalgia -- appears to be improved and minimal to the patient at this time. Continue pain control/scale for now. 3. Cardiovascular -- CAD with h/o CHF appears stable -- will provide gentle hydration only. Continue close monitoring and home medications. Afib -- Coumadin held for LP -- will restart. 4. DM -- appears to be stable -- continue his home meds with accuchecks and sliding scale insulin to cover. PLAN PLAN patient seen and dw the resident team - Dr. Page, Dr. Del Rosario, and Dr. Lisandro Stuart,Concetta Valdes MD Mar 14, 2017 13:24
[2017-03-14] MEDS ORDERED: WARFARIN SOD 2.5 MG TAB PO SCH (16:00)
--- NOTE | 2017-03-14 19:33 | EKG ---
Date Performed: 03/14/2017 Time Performed: 00:09:24 PTAGE: 76 years EKG: Sinus rhythm LOW QRS VOLTAGE INCOMPLETE RIGHT BUNDLE BRANCH BLOCK ANTERIOR MYOCARDIAL INFARCTION ABNORMAL ECG Sin ce PREVIOUS TRACING , no significant change noted PREVIOUS TRACIN04/01/2016 09.40 DOCTOR: Dalila Potts Interpretating Date/Time 03/14/2017 19:31:45
[2017-03-14] MEDS: PRAVASTATIN SOD 80 MG TAB PO SCH (21:50)
[2017-03-14] MEDS: GABAPENTIN 100 MG CAP PO SCH (21:50)
[2017-03-14] MEDS: PANTOPRAZOLE SOD 20 MG DELAYED RELEASE TAB PO SCH (21:51)
--- NOTE | 2017-03-14 21:54 | RADRPT ---
EXAM DATE/TIME: 03/14/2017 20:34 [facility] COMPARISON: MRI BRAIN W/O CONTRAST, March 13, 2017, 17:55. MRA BRAIN W/O CONTRAST, September 27, 2015, 11:33. INDICATIONS : Cephalgia. Ataxia. MEDICAL HISTORY : Hypertension. Diabetes mellitus type 2. Cerebrovascular disease. [place]. SURGICAL HISTORY : Prostatectomy. CABG. [employer] loop recorder. ENCOUNTER: Subsequent ACUITY: 2 day PAIN SCORE: 3/10 LOCATION: cranial Please note a normal MRA of the brain does not entirely exclude the possibility of a small aneurysm, nor the possibility of distal intracranial vessel disease. TECHNIQUE: 3D time of flight MRA was performed. Source images, multiplanar STS MIP, and 3D volume MIP reconstru ctions were reviewed. FINDINGS: There is excellent visualization of the major intracranial arteries out to the second-order branch ve ssels. There is no evidence for aneurysm, vessel truncation or stenosis, and no evidence for vascula r malformation. CONCLUSION: Negative MRA of the intracranial circulation. Masoud Griffiths MD on March 14, 2017 at 21:51 Board Certified Radiologist. This report was verified electronically.
[2017-03-14 21:59] LABS: ALBUMIN SPE 3.5 GM/DL (3.50-5.00); ALPHA 1 GLOBULIN 0.18 GM/DL (0.11-0.29); ALPHA 2 GLOBULIN 0.86 GM/DL (0.22-1.00)
[2017-03-14 22:00] LABS: BETA GLOBULINS (SPE) 0.75 GM/DL (0.53-1.03)
[2017-03-15] VITALS (10 sets, daily range): BP systolic 133–190; BP diastolic 77–110; PULSE 65–89; RESP 18–24; TEMP 97.5–98.4; O2SAT 93–97
[2017-03-15 08:35] LABS: AUTOMATED NEUTROPHIL # 5.6 TH/MM3 (1.8-7.7); BASOPHIL # 0.1 TH/MM3 (0-0.2); EOSINOPHIL # 0.3 TH/MM3 (0-0.4); EOSINOPHIL % 4.3 % (0.0-4.0); HEMATOCRIT 43.1 % (39.0-51.0); HEMO FLAGS DIFF FINAL; LYMPH % 13.5 % (9.0-44.0); MEAN CELL VOLUME 86.7 FL (80.0-100.0); MEAN CORPUSCULAR HEMOGLOBIN 29.5 PG (27.0-34.0); MONO % 7.3 % (0.0-8.0); NEUT % 73.9 % (16.0-70.0); PLATELET COUNT 222 TH/MM3 (150-450); RED BLOOD COUNT 4.97 MIL/MM3 (4.50-5.90); RED CELL DISTRIBUTION WIDTH 14.7 % (11.6-17.2); WHITE BLOOD COUNT 7.6 TH/MM3 (4.0-11.0)
[2017-03-15 08:42] LABS: APTT (PATIENT) 29.7 SEC (24.3-30.1); INTERNATIONAL NORMALIZED RATIO 1.2 RATIO; PROTHROMBIN TIME - PATIENT 13.4 SEC (9.8-11.6)
[2017-03-15] MEDS: SODIUM CHLORIDE 0.9% FLUSH 10 ML FLUSH IV FLUSH SCH ×2 (09:00→21:59)
[2017-03-15] MEDS: SODIUM CHLOR 0.9% 1000 ML INJ 1,000 ML IV SCH (09:00)
[2017-03-15 09:04] LABS: ANION GAP 9 MEQ/L (5-15); AST (GOT) 11 U/L (15-37); BICARBONATE 24.7 MEQ/L (21.0-32.0); BLOOD UREA NITROGEN 24 MG/DL (7-18); CHLORIDE 104 MEQ/L (98-107); GLOMERULAR FILTRATION RATE 54 ML/MIN (>89); POTASSIUM 4.1 MEQ/L (3.5-5.1); SODIUM (NA) 138 MEQ/L (136-145)
[2017-03-15 09:06] LABS: ALT (GPT) 24 U/L (12-78)
[2017-03-15 09:08] LABS: ALKALINE PHOSPHATASE 98 U/L (45-117); TOTAL BILIRUBIN ADULT 0.4 MG/DL (0.2-1.0)
[2017-03-15] MEDS: INSULIN ASPART 1,000 UNITS/10 ML VIAL SQ SCH ×3 (10:16→19:14)
[2017-03-15] MEDS: INSULIN DETEMIR 100 UNITS/ML VIAL SQ SCH ×2 (10:16→22:14)
[2017-03-15] MEDS: CITALOPRAM HYDROBROMIDE 40 MG TAB PO SCH (10:17)
[2017-03-15] MEDS: INSULIN ASPART SUPPLEMENTAL SCALE SQ SCH ×4 (10:17→22:14)
[2017-03-15] MEDS: LISINOPRIL 20 MG TAB PO SCH (10:18)
[2017-03-15] MEDS: DOCUSATE SODIUM 50 MG/SENNA 8.6 MG TAB PO SCH ×2 (10:18→21:59)
[2017-03-15] MEDS ORDERED: ONDANSETRON HCL 4 MG/2 ML VIAL IV PUSH PRN (11:45)
[2017-03-15] MEDS ORDERED: WALKER WHEELS/F1 MIS (12:15)
[2017-03-15] MEDS ORDERED: KETOROLAC TROMETHAMINE 30 MG/ML (IVP) VIAL IV PUSH ONE (13:00)
--- NOTE | 2017-03-15 13:45 | HHI.FPPN ---
Subjective Remarks Patient seen and examined at baseline. Pt complained of headache associated with light sensitivity and nausea. Denies vomiting. Pt stated PIZARRO pain was 9/10. (Marlena Page MD, R1) Objective Vitals Vital Signs Date Time Temp Pulse Resp B/P (MAP) Pulse Ox O2 Delivery O2 Flow Rate FiO2 03/15/17 11:59 98.3 78 22 153/96 (115) 94 03/15/17 08:40 20 03/15/17 08:36 97.6 73 22 160/99 (119) 93 03/15/17 08:00 70 03/15/17 06:21 21 03/15/17 04:27 98.4 69 18 173/87 (115) 95 03/15/17 04:10 72 03/15/17 00:26 98.1 80 18 173/84 (113) 97 03/15/17 00:06 89 03/14/17 20:08 77 03/14/17 20:00 98.0 67 18 167/87 (113) 97 03/14/17 15:45 97.6 73 22 166/95 (118) 93 I/O 03/14/17 03/14/17 03/14/17 03/15/17 03/15/17 03/15/17 07:00 15:00 23:00 07:00 15:00 23:00 Output Total 600 ml Balance -600 ml Output Urine Total 600 ml (Marlena Page MD, R1) Result Diagram: 03/15/17 0714 03/15/17 0714 Objective Remarks GEN: Well- nourished, well- developed, Alert and oriented x 3. SKIN: color normal, no rashes EYES: conjunctiva normal, PERRL, EOMI. ENT: Mouth and pharynx normal. NECK: thyroid midline, carotids symmetrical, no bruits LUNGS: CTA BL, respiratory effort is normal. CARDIO: Normal s1 and s2R, RR without murmur or gallop. No significant edema. +2 DP pulses BL GI/ABD: soft, positive BS, non-tender, non-distended, without masses, without organomegaly. NEURO: CN intact, cerebellar testing normal, 5/5 strength symmetrical all 4 ext , normal reflexes and normal sensation MUSC: Back to baseline. Extremities are normal in appearance. (Marlena Page MD, R1) A/P Assessment and Plan 76 yo male with extensive cardiac history and prior stroke presenting with: Discharge Planning Patient to be discharge to rehab facility. (Marlena Page MD, R1) Attending Attestation Patient seen and examined. Case reviewed and discussed with the resident team. Agree with plan of care as discussed with me and documented in the resident note. (Concetta Stuart MD) Problem List: (1) Neurological impairment in adult ICD Codes: G96.9 - Disorder of central nervous system, unspecified Status: Acute Plan: Acute lower extremity weakness bilaterally in setting of progressive ataxia with intermittent severe headaches and lightheadedness x6 weeks -neurology following, awaiting further recommendations -Outpatient neurologist is Dr. Barbosa -Outside tPA window on admission and clinically less likely to be stroke in any case (isolated proximal LE weakness) -Pt regained baseline LE function yesterday 03/14 Pt has undergone extensive neuro workup: CT head negative for acute process, showed chronic changes as noted above -S/P LP, no infectious etiology found on LP fluid studies - Telemetry d/c'ed - MRI brain w/o contrast showed stable chronic process with cortical and central atrophy, old left occipital infarct, no acute process -MRA: normal - Normal: B12, TSH, UA, -Negative: rheumatoid factor, -immunologic and myopathy lad work pending -PT assessment recommended physical therapy at rehab and order for walker was submitted. 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 ICD Codes: I69.30 - Unspecified sequelae of cerebral infarction Status: Chronic Plan: Old infarct, may explain some of patient's visual symptoms - See above for neurologic management - See below for anticoagulation management (AFib) (5) DM (diabetes mellitus) ICD Codes: E11.9 - DM (diabetes mellitus) Status: Chronic Plan: Glucose ranges 100s- 240s - insulin detemir 10 units BID - insulin aspart 5 units TIDAC - low dose insulin aspart sliding scale ACHS - Standard hypoglycemia protocol (6) HTN (hypertension) ICD Codes: I10 - HTN (hypertension) Status: Chronic Plan: - Continue home lisinopril (7) Atrial fibrillation ICD Codes: I48.91 - Atrial fibrillation Status: Acute Plan: - Warfarin restarted 03/14 - INR of 1.2 on 03/15 (8) FEN Plan: Fluids: PO only (reported CHF) Electrolytes: Monitor and replete as needed Nutrition: regular diet Dispo: Patient to be discharge to rehab facility. DVT: SCDs Code status: No code / DNR (Marlena Page MD, R1) Problem Qualifiers (1) DM (diabetes mellitus): Qualified Codes: E11.9 - Type 2 diabetes mellitus without complications; Z79.4 - long term care phlebotomist (current) use of insulin (2) HTN (hypertension): Qualified Codes: I10 - Essential (primary) hypertension (3) Atrial fibrillation: Qualified Codes: I48.0 - Paroxysmal atrial fibrillation Marlena Page MD, R1 Mar 15, 2017 13:45 Concetta Stuart MD Mar 16, 2017 12:57
[2017-03-15] MEDS ORDERED: WARFARIN SOD 5 MG TAB PO SCH (16:00)
--- NOTE | 2017-03-15 16:03 | HHI.DCPOC ---
Discharge Care Plan Diagnosis: (1) Ataxia (2) Lower extremity weakness (3) Neurological impairment in adult Goals to Promote Your Health * To prevent worsening of your condition and complications * To maintain your health at the optimal level Directions to Meet Your Goals Take your medications as prescribed Follow your dietary instruction Follow activity as directed Keep your appointments as scheduled Take your immunizations and boosters as scheduled If your symptoms worsen call your PCP, if no PCP go to Urgent Care Center or Emergency Room Smoking is Dangerous to Your Health. Avoid second hand smoke Call the 24-hour hour crisis hotline for domestic abuse at Marlena Page MD, R1 Mar 15, 2017 16:03
[2017-03-15] MEDS ORDERED: cloNIDine HCL 0.1 MG TAB PO PRN (16:45)
[2017-03-15] MEDS: PRAVASTATIN SOD 80 MG TAB PO SCH (21:59)
[2017-03-15] MEDS: GABAPENTIN 100 MG CAP PO SCH (21:59)
[2017-03-15] MEDS: PANTOPRAZOLE SOD 20 MG DELAYED RELEASE TAB PO SCH (21:59)
[2017-03-16 00:41] VITALS: BP 148/84; PULSE 65; RESP 18; TEMP 97.5; O2SAT 96
[2017-03-16 03:29] VITALS: BP 162/90; PULSE 64; RESP 20; TEMP 97.7; O2SAT 96
[2017-03-16] MEDS: SODIUM CHLOR 0.9% 1000 ML INJ 1,000 ML IV SCH (05:00)
[2017-03-16 05:29] LABS: HEMATOCRIT 43.6 % (39.0-51.0); MEAN CELL VOLUME 86.9 FL (80.0-100.0); MEAN CORPUSCULAR HEMOGLOBIN 28.9 PG (27.0-34.0); MEAN CORPUSCULAR HGB CONC 33.3 % (32.0-36.0); PLATELET COUNT 220 TH/MM3 (150-450); RED BLOOD COUNT 5.02 MIL/MM3 (4.50-5.90); RED CELL DISTRIBUTION WIDTH 14.7 % (11.6-17.2); REVIEW FLAG FINAL; WHITE BLOOD COUNT 6.7 TH/MM3 (4.0-11.0)
[2017-03-16 05:59] LABS: BICARBONATE 29.4 MEQ/L (21.0-32.0)
[2017-03-16 07:24] VITALS: BP 163/78; PULSE 69; RESP 16; TEMP 97.8; O2SAT 95
[2017-03-16] MEDS: ACETAMINOPHEN 325 MG TAB PO PRN (07:37)
[2017-03-16] MEDS: LISINOPRIL 20 MG TAB PO SCH (07:37)
[2017-03-16] MEDS: DOCUSATE SODIUM 50 MG/SENNA 8.6 MG TAB PO SCH (07:37)
[2017-03-16] MEDS: CITALOPRAM HYDROBROMIDE 40 MG TAB PO SCH (07:38)
[2017-03-16] MEDS: INSULIN ASPART SUPPLEMENTAL SCALE SQ SCH ×2 (08:00→12:00)
[2017-03-16] MEDS: INSULIN ASPART 1,000 UNITS/10 ML VIAL SQ SCH ×2 (08:00→12:00)
[2017-03-16] MEDS: INSULIN DETEMIR 100 UNITS/ML VIAL SQ SCH (08:57)
[2017-03-16] MEDS ORDERED: ACETAMINOPHEN 325 MG TAB PO SCH (09:00)
[2017-03-16] MEDS ORDERED: SUMAtriptan INJ 6 MG/0.5 ML VIAL SQ ONE (09:00)
--- NOTE | 2017-03-16 10:08 | HHI.FPPN ---
Subjective Remarks Sitting up at bedside eating breakfast this morning, overall his weakness is improved and is back to baseline, but he still complains of persistent headaches bandlike around his temples and occasionally on the back of his neck. Also with persistent photophobia and sensitivity to sounds. Nausea and dry heaving. Denies abdominal pain, chest pain, shortness of breath. (Celestino Del Rosario MD R2) Objective Vitals Vital Signs Date Time Temp Pulse Resp B/P (MAP) Pulse Ox O2 Delivery O2 Flow Rate FiO2 03/16/17 07:24 97.8 69 16 163/78 (106) 95 03/16/17 07:03 14 03/16/17 06:32 21 03/16/17 03:29 97.7 64 20 162/90 (114) 96 03/16/17 00:41 97.5 65 18 148/84 (105) 96 03/15/17 20:08 65 03/15/17 19:44 97.6 67 18 133/77 (95) 97 03/15/17 16:06 97.5 81 24 190/110 (136) 95 03/15/17 11:59 98.3 78 22 153/96 (115) 94 I/O 03/15/17 03/15/17 03/15/17 03/16/17 03/16/17 03/16/17 07:00 15:00 23:00 07:00 15:00 23:00 Output Total 275 ml Balance -275 ml Output Urine Total 275 ml # Voids 4 (Celestino Del Rosario MD R2) Result Diagram: 03/16/17 0430 03/16/17 0430 Imaging Last Impressions Lumbar Puncture Fluoroscopy 03/14/17 0000 Signed Impressions: Service Date/Time: Tuesday, March 14, 2017 08:20 - CONCLUSION: Uncomplicated fluoroscopically guided lumbar puncture. Garrick Evangelista MD Head Magnetic Resonance Angiography 03/14/17 0000 Signed Impressions: Service Date/Time: Tuesday, March 14, 2017 20:34 - CONCLUSION: Negative MRA of the intracranial circulation. Masoud Griffiths MD Head CT 03/13/17 1330 Signed Impressions: Service Date/Time: Monday, March 13, 2017 13:44 - CONCLUSION: 1. Chronic changes with cortical and central atrophy and severe periventricular and scattered deep white matter tracts areas of small vessel ischemic demyelination. 2. Old left occipital infarct. 3. Nothing acute Garrick Evangelista MD Thoracic Spine MRI 03/13/17 0000 Signed Impressions: Service Date/Time: Monday, March 13, 2017 17:55 - CONCLUSION: No significant disc herniation or spinal canal stenosis is present. Masoud Hatch MD Lumbar Spine MRI 03/13/17 0000 Signed Impressions: Service Date/Time: Monday, March 13, 2017 17:55 - CONCLUSION: There are degenerative changes at multiple levels in the lumbar spine with mild spinal canal stenosis at L3-L4. Remaining levels demonstrate no significant stenosis. There are areas of mild neural foraminal narrowing, as above. Masoud Hatch MD Cervical Spine MRI 03/13/17 0000 Signed Impressions: Service Date/Time: Monday, March 13, 2017 17:55 - CONCLUSION: 1. 3 level anterior fixation from C5-C7. 2. Grade one anterolisthesis C3 on 4 with associated small central disc protrusion. Right foraminal narrowing may compromise the right C4 nerve root. Spinal canal remains adequate. 3. Facet hypertrophy bilaterally at C4-5, left greater than right. Some encroachment on both neural foramina bilaterally but I believe the spinal canal and neural foramina remain adequate. Garrick Evangelista MD Brain MRI 03/13/17 0000 Signed Impressions: Service Date/Time: Monday, March 13, 2017 17:55 - CONCLUSION: 1. Stable chronic changes with cortical and central atrophy, old left occipital infarct and moderately severe periventricular and deep white matter tracks well vessel ischemic demyelination. 2. Nothing acute. Garrick Evangelista MD Objective Remarks GEN: Well- nourished, well- developed, NAD LUNGS: CTAB, respiratory effort is normal. CARDIO: Normal rate. Normal s1 and s2, RR without murmur or gallop. No significant edema. +2 DP pulses BL GI/ABD: soft, non-tender, non-distended, without masses, without organomegaly. NEURO: CN intact, 5/5 strength symmetrical all 4 ext. No increased pain on C- spine pressure. MUSC: Extremities are normal in appearance. No cyanosis or edema. Medications and IVs Current Medications Medications (Trade) Dose Ordered Sig/Janet Route Start Time Stop Time Status Last Admin (CeleXA) 40 mg DAILY PO 03/14/17 09:00 03/16/17 07:38 (Neurontin) 100 mg HS PO 03/13/17 21:00 03/15/17 21:59 (Prinivil) 40 mg DAILY PO 03/14/17 09:00 03/16/17 07:37 (Protonix) 20 mg HS PO 03/13/17 21:00 03/15/17 21:59 (Pravachol) 80 mg HS PO 03/13/17 21:00 03/15/17 21:59 Sodium Chloride 1,000 ml @ 50 mls/hr Q20H IV 03/13/17 17:00 03/16/17 05:00 (NS Flush) 2 ml UNSCH PRN IV FLUSH 03/13/17 16:45 (NS Flush) 2 ml BID IV FLUSH 03/13/17 21:00 03/15/17 21:59 (Lovenox Inj) 30 mg Q24H SQ 03/13/17 17:00 Future Hold (Narcan Inj) 0.4 mg UNSCH PRN IV PUSH 03/13/17 16:45 (Rosalie-Colace) 1 tab BID PO 03/13/17 21:00 03/16/17 07:37 (Milk Of Magnesia Liq) 30 ml Q12H PRN PO 03/13/17 16:45 (Senokot) 17.2 mg Q12H PRN PO 03/13/17 16:45 (Dulcolax Supp) 10 mg DAILY PRN RECTAL 03/13/17 16:45 (Lactulose Liq) 30 ml DAILY PRN PO 03/13/17 16:45 (D50w (Vial) Inj) 50 ml UNSCH PRN IV PUSH 03/13/17 19:00 (Glucagon Inj) 1 mg UNSCH PRN OTHER 03/13/17 19:00 (NovoLOG SUPPLEMENTAL SCALE) 1 ACHS SLIDING SCALE SQ 03/13/17 21:00 03/15/17 22:14 (Levemir Inj) 10 units Q12HR SQ 03/13/17 21:00 03/16/17 08:57 (NovoLOG INJ) 5 units TIDAC SQ 03/14/17 08:00 03/16/17 08:00 (Roxicodone) 5 mg Q4H PRN PO 03/13/17 19:30 (Coumadin) 2.5 mg MoWeFr@1600 PO 03/14/17 16:00 03/14/17 18:18 (Coumadin) 5 mg SuTuThSa@1600 PO 03/15/17 16:00 03/15/17 17:00 (Zofran Inj) 4 mg Q8H PRN IV PUSH 03/15/17 11:45 03/16/17 07:38 (Catapres) 0.1 mg Q6H PRN PO 03/15/17 16:45 03/15/17 16:59 (Tylenol) 650 mg Q6HR PO 03/16/17 09:00 (Celestino Del Rosario MD R2) A/P Assessment and Plan 76 yo male with extensive cardiac history and prior stroke presenting with: (Celestino Del Rosario MD R2) Attending Attestation Patient seen and examined. Case reviewed and discussed with the resident team. Agree with plan of care as discussed with me and documented in the resident note. (Concetta Stuart MD) Problem List: (1) Neurological impairment in adult ICD Codes: G96.9 - Disorder of central nervous system, unspecified Status: Acute Plan: Acute lower extremity weakness bilaterally in setting of progressive ataxia with intermittent severe headaches and lightheadedness x6 weeks Weakness now resolved, but persistent headache -neurology following, appreciate recommendations - workup as below, negative so far - For headache, recommended pain management referral as outpatient for possible ESIs - Agreed with trial of Imitrex as below - Also advised starting Topamax 25 mg BID - To evaluate this afternoon prior to discharge for possible additional recs -Outpatient neurologist is Dr. Barbosa Work-up CT head negative for acute process, showed chronic changes as noted above - S/P LP, no infectious etiology found on LP fluid studies - MRI brain w/o contrast showed stable chronic process with cortical and central atrophy, old left occipital infarct, no acute process - MRA: normal - Normal: B12, TSH, UA - Negative: rheumatoid factor, - immunologic and myopathy lab work pending - PT assessment recommended physical therapy at rehab and order for walker, to be discharged to SNF to complete rehab Headaches - Tylenol scheduled Q6H - Trial of sumatriptan 6 mg SQ - Topamax as above - If Imitrex successful, consider repeat dose - If Imitrex unsuccessful, add Fioricet - Oxycodone 5 mg Q6H PRN BRKP Nausea -zofran 4mg IV Q6h (2) Acute kidney injury ICD Codes: N17.9 - Acute kidney failure, unspecified Status: Resolved Plan: Cr baseline ~1.3 based on review of record Had decreased to 1.23, increased to 1.37 today likely due to single dose Toradol 03/16, but overall near baseline - Gentle hydration with NS at 50mls/hr due to h/o CHF - Encourage oral fluids (3) CAD S/P percutaneous coronary angioplasty ICD Codes: I25.10 - CAD S/P percutaneous coronary angioplasty; Z98.61 - Coronary angioplasty status Status: Chronic Plan: No current cardiac symptoms - Telemetry discontinued - Continue home statin (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 ICD Codes: I69.30 - Unspecified sequelae of cerebral infarction Status: Chronic Plan: Old infarct, may explain some of patient's visual symptoms - See above for neurologic management - See below for anticoagulation management (AFib) (5) DM (diabetes mellitus) ICD Codes: E11.9 - DM (diabetes mellitus) Status: Chronic Plan: Glucose ranges 100s- 240s - insulin detemir 10 units BID - insulin aspart 5 units TIDAC - low dose insulin aspart sliding scale ACHS - Standard hypoglycemia protocol - On discharge, resume home insulin regimen (6) HTN (hypertension) ICD Codes: I10 - HTN (hypertension) Status: Chronic Plan: BP running slightly high (140s-160s, occasionally up to 180s) - Continue home lisinopril - F/u with PCP; suspect acute elevation due to headache pain (7) Atrial fibrillation ICD Codes: I48.91 - Atrial fibrillation Status: Acute Plan: - Warfarin restarted 03/14 - INR of 1.2 on 03/15 (8) FEN Plan: Fluids: PO only (reported CHF) Electrolytes: Monitor and replete as needed Nutrition: regular diet DVT: SCDs Dispo: Patient to be discharge to rehab facility today PM Code status: No code / DNR (Celestino Del Rosario MD R2) Problem Qualifiers (1) DM (diabetes mellitus): Qualified Codes: E11.9 - Type 2 diabetes mellitus without complications; Z79.4 - detention (current) use of insulin (2) HTN (hypertension): Qualified Codes: I10 - Essential (primary) hypertension (3) Atrial fibrillation: Qualified Codes: I48.0 - Paroxysmal atrial fibrillation Celestino Del Rosario MD R2 Mar 16, 2017 10:08 Concetta Stuart MD Mar 16, 2017 13:01
[2017-03-16 11:32] VITALS: BP 154/90; PULSE 68; RESP 16; TEMP 97.8; O2SAT 97
[2017-03-16] MEDS ORDERED: TOPI25TA7 PO (11:52)
[2017-03-16] MEDS ORDERED: TOPIRAMATE 25 MG TAB PO ONE (12:00)
--- NOTE | 2017-03-16 13:12 | HHI.PR ---
Review/Management Diagnosis headaches--probably occipital neuralgia from cervical spondylosis CSF thus for as normal except elevatid protein--most likely due to his diabetes. Plan topamax 50 mg bid for occipital neuralgia headache He is stable to d/c to rehab from neuro standpoint If headaches persist, consider outpatient eval with interventional pain management to consider eyad or occipital nerve block Diagnosis/Plan: Subjective Subjective Comments Patient c/o severe headache this am --starting in cervical area with radiation to top of head. It is significantly improved at this time. He feels his strength is normal. Active Medications Current Medications Medications (Trade) Dose Ordered Sig/Janet Route Start Time Stop Time Status Last Admin (CeleXA) 40 mg DAILY PO 03/14/17 09:00 03/16/17 07:38 (Neurontin) 100 mg HS PO 03/13/17 21:00 03/15/17 21:59 (Prinivil) 40 mg DAILY PO 03/14/17 09:00 03/16/17 07:37 (Protonix) 20 mg HS PO 03/13/17 21:00 03/15/17 21:59 (Pravachol) 80 mg HS PO 03/13/17 21:00 03/15/17 21:59 Sodium Chloride 1,000 ml @ 50 mls/hr Q20H IV 03/13/17 17:00 03/16/17 05:00 (NS Flush) 2 ml UNSCH PRN IV FLUSH 03/13/17 16:45 (NS Flush) 2 ml BID IV FLUSH 03/13/17 21:00 03/15/17 21:59 (Lovenox Inj) 30 mg Q24H SQ 03/13/17 17:00 Future Hold (Narcan Inj) 0.4 mg UNSCH PRN IV PUSH 03/13/17 16:45 (Rosalie-Colace) 1 tab BID PO 03/13/17 21:00 03/16/17 07:37 (Milk Of Magnesia Liq) 30 ml Q12H PRN PO 03/13/17 16:45 (Senokot) 17.2 mg Q12H PRN PO 03/13/17 16:45 (Dulcolax Supp) 10 mg DAILY PRN RECTAL 03/13/17 16:45 (Lactulose Liq) 30 ml DAILY PRN PO 03/13/17 16:45 (D50w (Vial) Inj) 50 ml UNSCH PRN IV PUSH 03/13/17 19:00 (Glucagon Inj) 1 mg UNSCH PRN OTHER 03/13/17 19:00 (NovoLOG SUPPLEMENTAL SCALE) 1 ACHS SLIDING SCALE SQ 03/13/17 21:00 03/16/17 12:00 (Levemir Inj) 10 units Q12HR SQ 03/13/17 21:00 03/16/17 08:57 (NovoLOG INJ) 5 units TIDAC SQ 03/14/17 08:00 03/16/17 12:00 (Roxicodone) 5 mg Q4H PRN PO 03/13/17 19:30 (Coumadin) 2.5 mg MoWeFr@1600 PO 03/14/17 16:00 03/14/17 18:18 (Coumadin) 5 mg SuTuThSa@1600 PO 03/15/17 16:00 03/15/17 17:00 (Zofran Inj) 4 mg Q8H PRN IV PUSH 03/15/17 11:45 03/16/17 07:38 (Catapres) 0.1 mg Q6H PRN PO 03/15/17 16:45 03/15/17 16:59 (Tylenol) 650 mg Q6HR PO 03/16/17 09:00 Allergies Allergies Coded Allergies No Known Allergies (Verified Allergy, Unknown, 03/13/17) Unable to Assess (Unverified Allergy, Unknown, 12/14/16) Review of Systems All other ROS: ROS reviewed as documented in chart Exam I&O / VS Vital Signs Date Time Temp Pulse Resp B/P (MAP) Pulse Ox O2 Delivery O2 Flow Rate FiO2 03/16/17 11:32 97.8 68 16 154/90 (111) 97 03/16/17 07:24 97.8 69 16 163/78 (106) 95 03/16/17 07:03 14 03/16/17 06:32 21 03/16/17 03:29 97.7 64 20 162/90 (114) 96 03/16/17 00:41 97.5 65 18 148/84 (105) 96 03/15/17 20:08 65 03/15/17 19:44 97.6 67 18 133/77 (95) 97 03/15/17 16:06 97.5 81 24 190/110 (136) 95 General: Alert and Oriented, No acute distress Eye: EOMI Respiratory: Non-labored respirations Cardiology: Normal rate Musculoskeletal: ROM Neurologic: Alert, Oriented, Normal sensory, Normal motor, No focal defects, CN II-XII intact, Normal DTR's Psychiatric: Cooperative, Appropriate mood & affect Exam Comments alert, oriented Speech normal MOTOR 5/5 BUE and BLE Objective Micro and Labs Laboratory Tests Test 03/16/17 04:30 White Blood Count 6.7 Red Blood Count 5.02 Hemoglobin 14.5 Hematocrit 43.6 Mean Corpuscular Volume 86.9 Mean Corpuscular Hemoglobin 28.9 Mean Corpuscular Hemoglobin Concent 33.3 Red Cell Distribution Width 14.7 Platelet Count 220 Mean Platelet Volume 8.7 Blood Urea Nitrogen 25 Creatinine 1.37 Random Glucose 139 Calcium Level 9.3 Sodium Level 140 Potassium Level 5.0 Chloride Level 105 Carbon Dioxide Level 29.4 Anion Gap 6 Estimat Glomerular Filtration Rate 50 Date/Time Source Procedure Growth Status 03/14/17 09:02 Cerebral Spinal Fluid Lumbar Puncture Fungal Smear - Final NO FUNGAL ELEMENTS SEEN. Resulted 03/14/17 09:02 Cerebral Spinal Fluid Lumbar Puncture Fungal Culture Pending Resulted Jluis Mccauley PhD Mar 16, 2017 13:12
--- NOTE | 2017-03-16 15:13 | HHI.DS ---
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 Mccauley Procedures Lumbar Puncture - 03/14/17 Brief History History obtained from patient and his . 76-year-old male with extensive past medical history including atrial fibrillation, prior stroke, prior myocardial infarction, diabetes, and hypertension presenting with a one-day history of lower extremity weakness bilaterally in the setting of 6 weeks of progressive ataxia, intermittent headaches, and lightheadedness/dizziness. This morning at [facility] around 1100, he was walking with his baseline unsteady gait admitted to the seats. When mass was over, he had difficulty standing up, and then later cannot get into the car due to leg weakness. When he arrived home, he had to be supported by family members because his legs gave out on him. Over the last 6 weeks, his family has also noted that he is more sensitive to sound and lights and has complained of intermittent vision changes including color disturbances and dark vision. Over the last 6 weeks, he has also had some episodes of incontinence of bladder. Other than the weakness in his legs today and these symptoms over the last 6 weeks he has felt normal. CBC/BMP: 03/16/17 0430 03/16/17 0430 Significant Findings Laboratory Tests Test 03/13/17 17:43 03/14/17 04:25 03/14/17 07:47 03/14/17 09:02 Blood Urea Nitrogen 24 MG/DL (7-18) Random Glucose 107 MG/DL (74-106) Estimat Glomerular Filtration Rate 57 ML/MIN (>89) Prothrombin Time 16.2 SEC (9.8-11.6) Activated Partial Thromboplast Time 30.2 SEC (24.3-30.1) Total Creatine Kinase 37 U/L (39-308) Albumin/Globulin Ratio 1.30 (1.39-2.23) CSF Gross Blood (Tube 1) TRACE (0) CSF RBC (Tube 4) 5 /MM3 (NONE) CSF Total Protein 80.9 MG/DL (15.0-45.0) Test 03/15/17 07:14 03/16/17 04:30 Neutrophils (%) (Auto) 73.9 % (16.0-70.0) Eosinophils (%) (Auto) 4.3 % (0.0-4.0) Prothrombin Time 13.4 SEC (9.8-11.6) Blood Urea Nitrogen 24 MG/DL (7-18) 25 MG/DL (7-18) Random Glucose 205 MG/DL (74-106) 139 MG/DL (74-106) Albumin 3.1 GM/DL (3.4-5.0) Aspartate Amino Transf (AST/SGOT) 11 U/L (15-37) Estimat Glomerular Filtration Rate 54 ML/MIN (>89) 50 ML/MIN (>89) Creatinine 1.37 MG/DL (0.60-1.30) Item Value Date Time Rheumatoid Factor Screen NEGATIVE 03/14/17 0747 CSF Volume (Tube 1) 3.1 ML 03/14/17901 CSF Supernatant Color (tube 1) CLEAR 03/14/17901 CSF Gross Blood (Tube 1) TRACE H 03/14/17901 CSF Volume (Tube 2) 3.3 ML 03/14/17901 CSF Supernatant Color (tube 2) CLEAR 03/14/17901 CSF Gross Blood (Tube 2) TRACE 03/14/17901 CSF Volume (Tube 3) 3.1 ML 03/14/17901 CSF Supernatant Color (tube 3) CLEAR 03/14/17901 CSF Gross Blood (Tube 3) TRACE 03/14/17901 CSF Volume (Tube 4) 7.8 ML 11/13/17 0902 CSF Supernatant Color (tube 4) CLEAR 03/14/17 0902 CSF Gross Blood (Tube 4) 0 03/14/17 09 CSF WBC (Tube 4) 0 /MM3 03/14/17 09 CSF RBC (Tube 4) 5 /MM3 H 03/14/17 0902 CSF Neutrophils 0 % 03/14/17 09 CSF Lymphocytes 0 % 03/14/17 0902 CSF Glucose 65 MG/DL 03/14/17 0902 CSF Total Protein 80.9 MG/DL H 03/14/17 0902 Vitamin B12 Level GREATER THAN 2000 PG/ML H 03/13/17 1330 Thyroid Stimulating Hormone 3rd Gen 0.782 uIU/ML 03/13/17 1330 Imaging Last Impressions Lumbar Puncture Fluoroscopy 03/14/17 0000 Signed Impressions: Service Date/Time: Tuesday, March 14, 2017 08:20 - CONCLUSION: Uncomplicated fluoroscopically guided lumbar puncture. Garrick Evangelista MD Head Magnetic Resonance Angiography 03/14/17 0000 Signed Impressions: Service Date/Time: Tuesday, March 14, 2017 20:34 - CONCLUSION: Negative MRA of the intracranial circulation. Masoud Griffiths MD Head CT 03/13/17 1330 Signed Impressions: Service Date/Time: Monday, March 13, 2017 13:44 - CONCLUSION: 1. Chronic changes with cortical and central atrophy and severe periventricular and scattered deep white matter tracts areas of small vessel ischemic demyelination. 2. Old left occipital infarct. 3. Nothing acute Garrick Evangelista MD Thoracic Spine MRI 03/13/17 0000 Signed Impressions: Service Date/Time: Monday, March 13, 2017 17:55 - CONCLUSION: No significant disc herniation or spinal canal stenosis is present. Masoud Hatch MD Lumbar Spine MRI 03/13/17 0000 Signed Impressions: Service Date/Time: Monday, March 13, 2017 17:55 - CONCLUSION: There are degenerative changes at multiple levels in the lumbar spine with mild spinal canal stenosis at L3-L4. Remaining levels demonstrate no significant stenosis. There are areas of mild neural foraminal narrowing, as above. Masoud Hatch MD Cervical Spine MRI 03/13/17 0000 Signed Impressions: Service Date/Time: Monday, March 13, 2017 17:55 - CONCLUSION: 1. 3 level anterior fixation from C5-C7. 2. Grade one anterolisthesis C3 on 4 with associated small central disc protrusion. Right foraminal narrowing may compromise the right C4 nerve root. Spinal canal remains adequate. 3. Facet hypertrophy bilaterally at C4-5, left greater than right. Some encroachment on both neural foramina bilaterally but I believe the spinal canal and neural foramina remain adequate. Garrick Evangelista MD Brain MRI 03/13/17 0000 Signed Impressions: Service Date/Time: Monday, March 13, 2017 17:55 - CONCLUSION: 1. Stable chronic changes with cortical and central atrophy, old left occipital infarct and moderately severe periventricular and deep white matter tracks well vessel ischemic demyelination. 2. Nothing acute. Garrick Evangelista MD PE at Discharge GEN: Well- nourished, well- developed, NAD LUNGS: CTAB, respiratory effort is normal. CARDIO: Normal rate. Normal s1 and s2, RR without murmur or gallop. No significant edema. +2 DP pulses BL GI/ABD: soft, non-tender, non-distended, without masses, without organomegaly. NEURO: CN intact, 5/5 strength symmetrical all 4 ext. No increased pain on C- spine pressure. MUSC: Extremities are normal in appearance. No cyanosis or edema. Hospital Course 76 yo male admitted for proximal leg weakness in setting of 6 weeks of headaches and ataxia. Established with Neurologist Dr. Barbosa as outpatient, work-up had been initiated, patient has h/o stroke from AFib. Initial work-up in hospital including brain and total spine MRI negative. Brain MRA also showed no acute process. Lumbar puncture was performed and negative for infectious or inflammatory etiology. Lyme disease profile from CSF pending. Myositis labs pending at time of discharge. Patient's weakness improved spontaneously (prior to LP) and he was deemed stable for discharge to short-term rehab by PT. He was kept in house an extra night due to persistent headache and mildly elevated blood pressure. His headache resolved with Imitrex and he was discharged with topiramate. Blood pressure was slightly high but stable. He is to follow up neurologic work-up with Dr. Barbosa and blood pressure with his PCP. Pt Condition on Discharge: Stable Discharge Disposition: Discharge to SNF Discharge Instructions DIET: Follow Instructions for: As Tolerated, No Restrictions Activities you can perform: Regular-No Restrictions Follow up Referrals: Neurology - 2-3 Days with Sree Barbosa MD Pain Management - 1 Week PCP Follow-up - 1 Week New Medications: Topiramate (Topiramate) 25 Mg Tab 25 MG PO BID for Headaches, #60 TAB 0 Refills Walker with Front Wheels (Walker with Front Wheels) 1 Mis Mis EA .ROUTE DIRECTED, #1 0 Refills Continued Medications: Cholecalciferol (Vitamin D-3) 1,000 Unit Tab 5000 UNITS PO DAILY, #30 TAB 0 Refills Citalopram (Citalopram) 40 Mg Tab 40 MG PO DAILY for Control Depression, #30 TAB 0 Refills Docusate Sodium (Dok) 100 Mg Cap 100 MG PO BID for Constipation for 30 Days, CAP Gabapentin (Gabapentin) 100 Mg Cap 100 MG PO HS, #30 CAP 0 Refills Insulin Human NPH Inj (Novolin N Inj) 1,000 Unit/10 Ml Vial 30 UNITS SQ BID for Blood Sugar Management, #10 ML 0 Refills Insulin Human Regular Inj (Novolin R Inj) 1,000 Unit/10 Ml Vial 15 UNITS SQ BID for Blood Sugar Management, #10 ML 0 Refills Lisinopril (Lisinopril) 40 Mg Tab 40 MG PO DAILY for Blood Pressure Management, #30 TAB 0 Refills Omeprazole (Omeprazole) 20 Mg Cap 20 MG PO HS Simvastatin (Zocor) 40 Mg Tab 40 MG PO HS for Cholesterol Management, #30 TAB 0 Refills Warfarin (Warfarin) 5 Mg Tab 5 MG PO TueThuSatSun for Blood Clot Prevention, #30 TAB 0 Refills Warfarin (Warfarin) 2.5 Mg Tab 2.5 MG PO MonWedFri for Blood Clot Prevention, #30 TAB 0 Refills Celestino Del Rosario MD R2 Mar 16, 2017 3:12 pm
[2017-03-16 19:51] LABS: VDRL CSF NON-REACTIVE (NON-REACTVE)
[2017-03-16 23:51] LABS: STRIATED MUCLE AB TITER ND (<1:40)
[2017-03-17 09:46] LABS: CSF CRYPTOCOCCUS AG CONF ND (NOT DETECTD)
[2017-03-17 11:54] LABS: B. BURGDORFERI DNA PCR CSF NOT DETECTED (NOT DETECTE)
[2017-03-18 05:40] LABS: ACETYLCHOLINE REC BINDING LESS THAN 0.30 nmol/L
== END 2017-03-16 15:48 | disposition home or self-care (01) ==
LOC: NEPC 13:06 → NEDA 15:29 → NEPFCDU 16:51
PROVIDERS: ADMIT Family Medicine; ATTEND Family Medicine
DX: R53.1 Weakness (principal); R27.0 Ataxia, unspecified; R51 Headache; R42 Dizziness and giddiness; N17.9 Acute kidney failure, unspecified; R26.2 Difficulty in walking, not elsewhere classified; G96.9 Disorder of central nervous system, unspecified; R11.0 Nausea; H53.149 Visual discomfort, unspecified; M54.81 Occipital neuralgia; I45.10 Unspecified right bundle-branch block; R94.31 Abnormal electrocardiogram [ECG] [EKG]; R32 Unspecified urinary incontinence; R47.1 Dysarthria and anarthria; I25.10 Atherosclerotic heart disease of native coronary artery without angina pectoris; E11.9 Type 2 diabetes mellitus without complications; I11.0 Hypertensive heart disease with heart failure; I50.20 Unspecified systolic (congestive) heart failure; I48.0 Paroxysmal atrial fibrillation; R00.0 Tachycardia, unspecified; I69.30 Unspecified sequelae of cerebral infarction; I25.2 Old myocardial infarction; E78.00 Pure hypercholesterolemia, unspecified; K21.9 Gastro-esophageal reflux disease without esophagitis; G25.81 Restless legs syndrome; M48.061 Spinal stenosis, lumbar region without neurogenic claudication; M50.21 Other cervical disc displacement, high cervical region; F03.90 Unspecified dementia, unspecified severity, without behavioral disturbance, psychotic disturbance, mood disturbance, and anxiety; F32.9 Major depressive disorder, single episode, unspecified; Z79.899 Other long term (current) drug therapy; Z79.01 Long term (current) use of anticoagulants; Z79.4 Long term (current) use of insulin; Z95.5 Presence of coronary angioplasty implant and graft; Z96.659 Presence of unspecified artificial knee joint; Z95.1 Presence of aortocoronary bypass graft; Z98.61 Coronary angioplasty status; Z66 Do not resuscitate
CPT/HCPCS: 62270; 70450; 70544; 70551; 72141; 72146; 72148; 77003; 80048; 80053; 81001; 82550; 82607; 82945; 82948; 83519; 84157; 84165; 84443; 85025; 85027; 85610; 85652; 85730; 86140; 86255; 86403; 86430; 86592; 87015; 87070; 87102; 87116; 87205; 87206; 87801; 89051; 93005; 94002; 96361; 96372; 96374; 96375; 97162; 97166; 97530; 99285; G0378; G8987; G8988; J0780; J1200; J1815; J1885; J2270; J2405; J3030; J7030

== ENCOUNTER 2017-04-26 12:47 | Emergency (ER) | payer MEDICARE ==
[~2017-04-26] VITALS: Ht 180.3 cm; Wt 101.3 kg
[~2017-04-26 12:47] MED LIST changes: -COUM7.5T PO; -ENOX100P SQ; -OXYC1TAB63 PO; -PERC5TAB12 PO; +TOPI25TA7 PO; +WALKER WHEELS/F1 MIS
[2017-04-26 12:56] VITALS: BP 132/78; PULSE 79; RESP 16; TEMP 98.3; O2SAT 95
--- NOTE | 2017-04-26 13:11 | PD ---
HPI Chief Complaint: Fall Time Seen by Provider: 13:07 Travel History International Travel<30 days: No Contact w/Intl Traveler<30days: No Traveled to known affect area: No History of Present Illness HPI 76-year-old male patient with history of dementia, currently on Coumadin due to cardiac history, A. fib, CAD status post CABG, here because he had tripped and fell into a drawer hitting his head and has a scalp laceration on the top of his head. He denies any loss of consciousness. He apparently did not have any other injuries. He was ambulatory into the ER. Modifying Factors: None Associated Signs & Symptoms: Trip and fall, scalp laceration, head injury Risk Factors: On Coumadin PFSH Past Medical History Hx Anticoagulant Therapy: Yes (coumadin) Atrial Fibrillation: Yes Anxiety: No Depression: Yes Heart Rhythm Problems: Yes (AFIB) Cancer: Yes (PROSTATE) Cardiac Catheterization: Yes Cardiovascular Problems: Yes (htn on med, 2 stents, 2 bypass, a-fib has loop recorder) High Cholesterol: Yes Chemotherapy: No Chest Pain: Yes Congestive Heart Failure: No Cerebrovascular Accident: Yes (cva) Coronary Artery Disease: Yes Diabetes: Yes (type 2) Endocrine: Yes Gastrointestinal Disorders: Yes GERD: Yes Glaucoma: No Genitourinary: Yes (URINARY INCONTANCE, SCARRED URETHRA) Hepatitis: No Hiatal Hernia: No Hypertension: Yes Immune Disorder: No Implanted Vascular Access Dvce: Yes Musculoskeletal: Yes (RLS) Neurologic: Yes Psychiatric: Yes Reproductive: Yes Respiratory: Yes (sleep apnea) Integumentary: No Migraines: No Radiation Therapy: No Renal Failure: No Seizures: No Thyroid Disease: No Triglycerides - High: Yes Ulcer: No Past Surgical History Body Medical Devices: CARDIAC STENT X1, AORTIC VALVE, LEFT KNEE, LOOP RECORDER Cardiac Surgery: Yes (STENT PLACEMENT, CARDIAC CATHERIZATION, MITRAL REPAIR, AORTIC VALVE REPLACE) Coronary Artery Bypass Graft: Yes Coronary Stent: Yes Eye Surgery: Yes (BILATERAL CATARACT SURGERY) Genitourinary Surgery: Yes (PROSTATECTOMY, bladder surgery ) Joint Replacement: Yes (LEFT KNEE) Pacemaker: No Thoracic Surgery: Yes (2 WAY BYPASS) Other Surgery: Yes (PROSTATE,LEFT KNEE,BACK,BILAT SHOULDER, BILAT CARPAL TUNNEL ) Social History Alcohol Use: No (DENIES) Tobacco Use: No (DENIES) Substance Use: No Allergies-Medications (Allergen,Severity, Reaction): Coded Allergies: No Known Allergies (Verified Allergy, Unknown, 04/26/17) Reported Meds & Prescriptions Reported Meds & Active Scripts Active Warfarin 2.5 Mg Tab 2.5 Mg PO MONWEDFRI Reported Senna-Tabs (Sennosides) 8.6 Mg Tab 8.6 Mg PO BID Novolin R Inj (Insulin Human Regular) 1,000 Unit/10 Ml Vial 15 Units SQ BID Novolin N Inj (Insulin Human NPH) 1,000 Unit/10 Ml Vial 30 Units SQ BID Warfarin 5 Mg Tab 5 Mg PO TUETHUSATSUN Zocor (Simvastatin) 40 Mg Tab 40 Mg PO HS Omeprazole 20 Mg Cap 20 Mg PO HS Lisinopril 40 Mg Tab 20 Mg PO DAILY Gabapentin 100 Mg Cap 300 Mg PO BID Citalopram (Citalopram Hydrobromide) 40 Mg Tab 40 Mg PO DAILY Review of Systems Except as stated in HPI: all other systems reviewed are Neg Physical Exam Narrative GENERAL: Well-developed elderly white male patient currently in no acute distress. Awake and alert. SKIN: Focused skin assessment warm/dry. HEAD: There is an irregular Y-shaped laceration measuring 3 cm on the top of the scalp with bleeding controlled. Normocephalic. EYES: Pupils equal and round. No scleral icterus. No injection or drainage. ENT: No nasal bleeding or discharge. Mucous membranes pink and moist. NECK: Trachea midline. No JVD. No midline C-spine tenderness. CARDIOVASCULAR: Regular rate and rhythm. No murmur appreciated. RESPIRATORY: No accessory muscle use. Clear to auscultation. Breath sounds equal bilaterally. GASTROINTESTINAL: Abdomen soft, non-tender, nondistended. Hepatic and splenic margins not palpable. MUSCULOSKELETAL: No obvious deformities. No clubbing. No cyanosis. No edema. NEUROLOGICAL: Awake and alert. No obvious cranial nerve deficits. Motor grossly within normal limits. Normal speech. PSYCHIATRIC: Appropriate mood and affect; insight and judgment normal. Data Data Last Documented VS Vital Signs Date Time Temp Pulse Resp B/P (MAP) Pulse Ox O2 Delivery O2 Flow Rate FiO2 04/26/17 13:55 69 20 138/78 (98) 96 Room Air 04/26/17 12:[address] Brain W/O Iv Contrast(Rout) (04/26/17 13:03) Ct Cerv Spine W/O Contrast (04/26/17 13:07) Lidocaine 1% Inj (50 Ml) (Xylocaine 1% I (04/26/17 13:15) MDM Medical Decision Making Medical Screen Exam Complete: Yes Emergency Medical Condition: Yes Medical Record Reviewed: Yes Interpretation(s) Last [address] 04/26/17 1303 Signed Impressions: Service Date/Time: Wednesday, April 26, 2017 13:28 - CONCLUSION: Old infarct left parietal occipital l region otherwise negative. Mikal Cary MD FACR Differential Diagnosis Fall, scalp injury: Rule out intracranial injuries Narrative Course CAT scan did not show any signs of acute intracranial injuries or C-spine injuries. She had her scalp laceration stapled by me in the ER. Tetanus is up- to-date. At this point, my plan would be to release the patient with follow-up to primary care physician. Continue to follow-up with Coumadin levels and return for any worsening in headache pain, vomiting, and as needed. Wound care instructions given. The plan was discussed with patient's and she states understanding. Procedures Procedure Narrative Scalp laceration is irrigated with copious normal saline. 3 cc of 1% lidocaine local was placed. Scalp laceration was stapled with 6 christy. Patient tolerated procedure well. Diagnosis Primary Impression: Scalp laceration Additional Instructions: Follow-up with your regular doctor. Return for any worsening in headaches, vomiting, signs of wound infection, and as needed. Staple removal in 7-10 days. Disposition: 01 DISCHARGE HOME Condition: Stable Jose Harrison MD Apr 26, 2017 13:11
[2017-04-26] MEDS ORDERED: LIDOCAINE HCL 1% 50 ML VIAL INFIL ONE (13:15)
[2017-04-26] MEDS ORDERED: SENN8.6T36 PO (13:17)
--- NOTE | 2017-04-26 13:43 | RADRPT ---
EXAM DATE/TIME: 04/26/2017 13:28 [facility] COMPARISON: CT BRAIN W/O CONTRAST, March 13, 2017, 13:44. INDICATIONS : Fall. Laceration on top of head. RADIATION DOSE: 57.45 CTDIvol (mGy) MEDICAL HISTORY : Cardiovascular disease. Cerebrovascular disease. Carcinoma, prostate.Anticoagulant therapy. 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 Hypertension. Diabetes. SURGICAL HISTORY : Coronary artery stent. CABGProstatectomy.Loop recorder. Cervical fusion. Aortic valve replacement. B ladder surgery. ENCOUNTER: Initial ACUITY: 1 day PAIN SCALE: 5/10 LOCATION: cranial vertex TECHNIQUE: Multiple contiguous axial images were obtained of the head. Using automated exposure control and adj ustment of the mA and/or kV according to patient size, radiation dose was kept as low as reasonably a chievable to obtain optimal diagnostic quality images. DICOM format image data is available electro nically for review and comparison. FINDINGS: CEREBRUM: Old infarct left parietal occipital region. The exercise appropriate. No parenchymal hemorrhage, ac wiyot infarction mass effect. POSTERIOR FOSSA: The cerebellum and brainstem are intact. The 4th ventricle is midline. The cerebellopontine angle i s unremarkable. EXTRACRANIAL: The visualized portion of the orbits is intact. SKULL: The calvaria is intact. No evidence of skull fracture. CONCLUSION: Old infarct left parietal occipital l region otherwise negative. Mikal Cary MD FACR on April 26, 2017 at 13:40 Board Certified Radiologist. This report was verified electronically.
[2017-04-26 13:55] VITALS: BP 138/78; PULSE 69; RESP 20; O2SAT 96
--- NOTE | 2017-04-26 14:28 | RADRPT ---
EXAM DATE/TIME: 04/26/2017 13:28 [facility] COMPARISON: No previous studies available for comparison. INDICATIONS : Fall. Laceration on top of head. RADIATION DOSE: 26.64 CTDIvol (mGy) MEDICAL HISTORY : Cerebrovascular disease. Cardiovascular disease Carcinoma, prostate.Anticoagula nt therapy. 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 Hypertension. Diabetes. SURGICAL HISTORY : Coronary artery stent. CABGProstatectomy.Loop recorder. Cervical fusion. Aort ic valve replacement. Bladder surgery. ENCOUNTER: Initial ACUITY: 1 day PAIN SCALE: 5/10 LOCATION: neck TECHNIQUE: Volumetric scanning of the cervical spine was performed. Multiplanar reconstructions i n the sagittal, coronal and oblique axial planes were performed. Using automated exposure control a nd adjustment of the mA and/or kV according to patient size, radiation dose was kept as low as reason ably achievable to obtain optimal diagnostic quality images. DICOM format image data is available e lectronically for review and comparison. FINDINGS: Alignment: Craniocervical and cervical vertebral body alignment is well maintained. Osseous structures and facet joints: Postsurgical changes are noted following anterior cervical fusion from C5-C7. There is an anterior fu shanti plate as well as vertebral body cages. Facet arthropathy is noted. There are mild changes on the right and moderate changes on the left. Susana nt space narrowing with subchondral sclerosis is noted. Posterior elements are otherwise intact. There is no evidence of fracture or facet subluxation. Intervertebral disc spaces: Moderate degenerative disc disease with marginal spondylosis is noted. There are posterior disc osteo phyte complexes at C3-4 C4-5. There is no significant spinal canal narrowing or neural foraminal impi ngement. Neurologic structures: Unremarkable. CONCLUSION: 1. No evidence of fracture or traumatic listhesis. 2. Status post anterior cervical fusion from C5-C7. 3. Facet arthropathy. 4. No acute soft tissue abnormality. Oswaldo Thomas MD on April 26, 2017 at 14:18 Board Certified Radiologist. This report was verified electronically.
== END 2017-04-26 14:44 | disposition home or self-care (01) ==
LOC: PHED 12:47
DX: S01.01XA Laceration without foreign body of scalp, initial encounter (principal); I48.91 Unspecified atrial fibrillation; I25.10 Atherosclerotic heart disease of native coronary artery without angina pectoris; F03.90 Unspecified dementia, unspecified severity, without behavioral disturbance, psychotic disturbance, mood disturbance, and anxiety; E11.9 Type 2 diabetes mellitus without complications; I10 Essential (primary) hypertension; E78.00 Pure hypercholesterolemia, unspecified; G25.81 Restless legs syndrome; W01.0XXA Fall on same level from slipping, tripping and stumbling without subsequent striking against object, initial encounter
CPT/HCPCS: 12002; 70450; 72125

== ENCOUNTER 2017-08-27 21:03 | Emergency (ER) | payer OTHER, MEDICARE ==
[~2017-08-27] VITALS: Ht 177.8 cm; Wt 103.5 kg
[~2017-08-27 21:03] MED LIST changes: -DOCU1CAP39 PO; +SENN8.6T36 PO; -TOPI25TA7 PO; -VITA10003 PO; -WALKER WHEELS/F1 MIS
[2017-08-27 21:26] VITALS: BP 170/102; PULSE 85; RESP 18; TEMP 98.6; O2SAT 97
[2017-08-27 21:29] VITALS: O2SAT 97
[2017-08-27 21:34] LABS: BASOPHIL % 0.6 % (0.0-2.0); EOSINOPHIL # 0.2 TH/MM3 (0-0.4); EOSINOPHIL % 2.5 % (0.0-4.0); HEMATOCRIT 42.8 % (39.0-51.0); HEMOGLOBIN 14.1 GM/DL (13.0-17.0); LYMPH % 16.7 % (9.0-44.0); LYMPHOCYTE # 1.4 TH/MM3 (1.0-4.8); MEAN CELL VOLUME 83.8 FL (80.0-100.0); MEAN CORPUSCULAR HEMOGLOBIN 27.6 PG (27.0-34.0); MONO % 7.1 % (0.0-8.0); MONOCYTE # 0.6 TH/MM3 (0-0.9); NEUT % 73.1 % (16.0-70.0); PLATELET COUNT 226 TH/MM3 (150-450); RED BLOOD COUNT 5.11 MIL/MM3 (4.50-5.90); RED CELL DISTRIBUTION WIDTH 13.6 % (11.6-17.2); WHITE BLOOD COUNT 8.2 TH/MM3 (4.0-11.0)
[2017-08-27] MEDS ORDERED: ATOR40TA16 PO (21:40)
[2017-08-27] MEDS ORDERED: LORA0.5T SL (21:40)
[2017-08-27] MEDS ORDERED: CYCL5TAB PO (21:40)
[2017-08-27] MEDS ORDERED: NUED20CA PO (21:40)
[2017-08-27] MEDS ORDERED: ESCI10TA PO (21:40)
[2017-08-27] MEDS ORDERED: BUSP10TA PO (21:40)
[2017-08-27] MEDS ORDERED: WARF-23 PO (21:40)
--- NOTE | 2017-08-27 21:40 | RADRPT ---
EXAM DATE/TIME: 08/27/2017 21:28 [facility] COMPARISON: CHEST SINGLE AP, April 01, 2016, 11:26. INDICATIONS : Chest pain. MEDICAL HISTORY : Cardiovascular disease. Cerebrovascular disease. Carcinoma, prostate.Anticoagulant therapy. Macular h ole in left eye. Hypertension. Diabetes. SURGICAL HISTORY : Coronary artery stent. CABGProstatectomy.Loop recorder. Cervical fusion. Aortic valve replacement. Bl adder surgery. ENCOUNTER: Initial ACUITY: 1 week PAIN SCORE: 8/10 LOCATION: Bilateral chest FINDINGS: A single view of the chest demonstrates cardiomegaly with previous CABG. Loop recorder device. Pulmon vane vascular congestion. Osseous structures are intact. CONCLUSION: Cardiomegaly and increased pulmonary vascularity. Shawn Friedman MD on August 27, 2017 at 21:37 Board Certified Radiologist. This report was verified electronically.
[2017-08-27 21:43] LABS: CHLORIDE 102 MEQ/L (98-107); SODIUM (NA) 136 MEQ/L (136-145)
[2017-08-27 21:46] LABS: BICARBONATE 26.5 MEQ/L (21.0-32.0); CALCIUM 8.5 MG/DL (8.5-10.1); GLUCOSE,RANDOM 354 MG/DL (74-106)
[2017-08-27 21:47] LABS: BLOOD UREA NITROGEN 20 MG/DL (7-18)
[2017-08-27 21:50] LABS: GLOMERULAR FILTRATION RATE 45 ML/MIN (>89)
[2017-08-27 21:54] LABS: TROPONIN I LESS THAN 0.02 NG/ML (0.02-0.05)
--- NOTE | 2017-08-27 21:56 | PD ---
HPI Chief Complaint: Chest Pain Time Seen by Provider: 21:51 Travel History International Travel<30 days: No Contact w/Intl Traveler<30days: No Traveled to known affect area: No History of Present Illness HPI The patient is a 77-year-old male that complains of a sharp, stabbing, pleuritic chest pain of 8/10 this morning. It is located in the left anterior portion of his chest. The chest pain is somewhat positional as well. The pain hurts mainly when he takes a deep breath. He states he does have some nausea and some slight shortness of breath and some diaphoresis. He states the pain sometimes radiates to his left neck. He does have a history of congestive heart failure. He does have a history of coronary artery disease and has had a coronary artery bypass graft. His loss prevention consultant is Dr. Steen. He also complains of some burning on urination. The patient has a mechanical sphincter in his scrotum for the urine. PFSH Past Medical History Hx Anticoagulant Therapy: Yes (coumadin) Atrial Fibrillation: Yes Anxiety: No Depression: Yes Heart Rhythm Problems: Yes (AFIB) Cancer: Yes (PROSTATE) Cardiac Catheterization: Yes Cardiovascular Problems: Yes High Cholesterol: Yes Chemotherapy: No Chest Pain: Yes Congestive Heart Failure: No Cerebrovascular Accident: Yes (cva) Coronary Artery Disease: Yes Diabetes: Yes Patient Takes Glucophage: Yes Endocrine: Yes Gastrointestinal Disorders: Yes GERD: Yes Glaucoma: No Genitourinary: Yes (URINARY INCONTANCE, SCARRED URETHRA) Headaches: No Hepatitis: No Hiatal Hernia: No Hypertension: Yes Immune Disorder: No Implanted Vascular Access Dvce: Yes Medical other: Yes (SCAR TISSUE IN BLADDER, URETHRA, CAN'T BE CATHETERIZED) Musculoskeletal: Yes (RLS) Neurologic: Yes Psychiatric: Yes Reproductive: Yes Respiratory: Yes (sleep apnea) Integumentary: No Migraines: No Radiation Therapy: No Renal Failure: No Seizures: No Thyroid Disease: No Triglycerides - High: Yes Ulcer: No Past Surgical History Body Medical Devices: CARDIAC STENT X1, AORTIC VALVE, LEFT KNEE, LOOP RECORDER Cardiac Surgery: Yes (STENT PLACEMENT, CARDIAC CATHERIZATION, MITRAL REPAIR, AORTIC VALVE REPLACE) Coronary Artery Bypass Graft: Yes Coronary Stent: Yes Eye Surgery: Yes (BILATERAL CATARACT SURGERY) Genitourinary Surgery: Yes (PROSTATECTOMY, bladder surgery ) Joint Replacement: Yes (LEFT KNEE) Pacemaker: No Thoracic Surgery: Yes (2 WAY BYPASS) Other Surgery: Yes (PROSTATE,LEFT KNEE,BACK,BILAT SHOULDER, BILAT CARPAL TUNNEL ) Social History Alcohol Use: No (DENIES) Tobacco Use: No (DENIES) Substance Use: No Allergies-Medications (Allergen,Severity, Reaction): Coded Allergies: No Known Allergies (Verified Allergy, Unknown, 08/27/17) Reported Meds & Prescriptions Reported Meds & Active Scripts Active Reported Warfarin 5 Mg Tab 5 Mg PO DAILY Lorazepam 0.5 Mg Tab 0.5 Mg SL Q4H PRN Escitalopram (Escitalopram Oxalate) 10 Mg Tab 10 Mg PO DAILY Flexeril (Cyclobenzaprine HCl) 5 Mg Tab 5 Mg PO BID Nuedexta 20-10 mg (Dextromethorphan HBr-Quinidine) 20 Mg-10 Mg Cap 1 Cap PO BID Buspirone (Buspirone HCl) 10 Mg Tab 10 Mg PO BID Atorvastatin (Atorvastatin Calcium) 40 Mg Tab 40 Mg PO HS Senna-Tabs (Sennosides) 8.6 Mg Tab 8.6 Mg PO BID Novolin R Inj (Insulin Human Regular) 1,000 Unit/10 Ml Vial 15 Units SQ BID Novolin N Inj (Insulin Human NPH) 1,000 Unit/10 Ml Vial 30 Units SQ BID Omeprazole 20 Mg Cap 20 Mg PO HS Lisinopril 40 Mg Tab 20 Mg PO DAILY Gabapentin 100 Mg Cap 300 Mg PO BID Review of Systems Except as stated in HPI: all other systems reviewed are Neg Physical Exam Narrative GENERAL: The patient is alert, oriented 3 in moderate apparent distress with his chest pain. SKIN: Focused skin assessment warm/dry. HEAD: Atraumatic. Normocephalic. EYES: Pupils equal and round. No scleral icterus. No injection or drainage. ENT: No nasal bleeding or discharge. Mucous membranes pink and moist. NECK: Trachea midline. No JVD. CARDIOVASCULAR: Regular rate and rhythm. No murmur appreciated. RESPIRATORY: No accessory muscle use. Clear to auscultation. Breath sounds equal bilaterally. GASTROINTESTINAL: Abdomen soft, non-tender, nondistended. Hepatic and splenic margins not palpable. MUSCULOSKELETAL: No obvious deformities. No clubbing. No cyanosis. No edema. NEUROLOGICAL: Awake and alert. No obvious cranial nerve deficits. Motor grossly within normal limits. Normal speech. PSYCHIATRIC: Appropriate mood and affect; insight and judgment normal. Data Data Last Documented VS Vital Signs Date Time Temp Pulse Resp B/P (MAP) Pulse Ox O2 Delivery O2 Flow Rate FiO2 08/27/17 23:05 78 18 151/86 (107) 100 Room Air 08/27/17 21:26 98.6 Orders Orders Electrocardiogram (08/27/17 21:05) Complete Blood Count With Diff (08/27/17 21:05) Basic Metabolic Panel (Bmp) (08/27/17 21:05) Ckmb (Isoenzyme) Profile (08/27/17 21:05) Troponin I (08/27/17 21:05) Chest, Single Ap (08/27/17 21:05) Iv Access Insert/Monitor (08/27/17 21:05) Ecg Monitoring (08/27/17 21:05) Oxygen Administration (08/27/17 21:05) Oximetry (08/27/17 21:05) B-Type Natriuretic Peptide (08/27/17 21:51) Ct Pulmonary Angiogram (08/27/17 21:51) Prothrombin Time / Inr (Pt) (08/27/17 21:53) Urinalysis - C+S If Indicated (08/27/17 21:56) Iohexol 350 Inj (Omnipaque 350 Inj) (08/27/17 22:46) Labs Laboratory Tests Test 08/27/17 21:15 08/27/17 21:50 White Blood Count 8.2 TH/MM3 Red Blood Count 5.11 MIL/MM3 Hemoglobin 14.1 GM/DL Hematocrit 42.8 % Mean Corpuscular Volume 83.8 FL Mean Corpuscular Hemoglobin 27.6 PG Mean Corpuscular Hemoglobin Concent 33.0 % Red Cell Distribution Width 13.6 % Platelet Count 226 TH/MM3 Mean Platelet Volume 9.0 FL Neutrophils (%) (Auto) 73.1 % Lymphocytes (%) (Auto) 16.7 % Monocytes (%) (Auto) 7.1 % Eosinophils (%) (Auto) 2.5 % Basophils (%) (Auto) 0.6 % Neutrophils # (Auto) 6.0 TH/MM3 Lymphocytes # (Auto) 1.4 TH/MM3 Monocytes # (Auto) 0.6 TH/MM3 Eosinophils # (Auto) 0.2 TH/MM3 Basophils # (Auto) 0.0 TH/MM3 CBC Comment DIFF FINAL Differential Comment Blood Urea Nitrogen 20 MG/DL Creatinine 1.50 MG/DL Random Glucose 354 MG/DL Calcium Level 8.5 MG/DL Sodium Level 136 MEQ/L Potassium Level 4.7 MEQ/L Chloride Level 102 MEQ/L Carbon Dioxide Level 26.5 MEQ/L Anion Gap 8 MEQ/L Estimat Glomerular Filtration Rate 45 ML/MIN Total Creatine Kinase 58 U/L Troponin I LESS THAN 0.02 NG/ML Urine Color YELLOW Urine Turbidity CLEAR Urine pH 6.5 Urine Specific [place] 1.015 Urine Protein NEG mg/dL Urine Glucose (UA) 1000 OR GREATER mg/dL Urine Ketones NEG mg/dL Urine Occult Blood NEG Urine Nitrite POS Urine Bilirubin NEG Urine Urobilinogen 1.0 MG/DL Urine Leukocyte Esterase NEG Urine WBC 0-2 /hpf Urine Squamous Epithelial Cells 0-5 /hpf Microscopic Urinalysis Comment CULT NOT INDICATED MDM Medical Decision Making Medical Screen Exam Complete: Yes Emergency Medical Condition: Yes Medical Record Reviewed: Yes Interpretation(s) The EKG shows sinus rhythm with a rate of [address] elevation or depression. There is a left anterior fascicular block present. The CBC is normal. The basic metabolic profile shows a BUN of 20, creatinine 1.5, GFR 45 with glucose 354 but is otherwise normal. The cardiac enzymes are normal. The chest x-ray shows cardiomegaly and increased pulmonary vascularity. The CT pulmonary angiogram shows no evidence for pulmonary embolism, status post mitral valve replacement, scattered groundglass densities in the lung bases which are likely atelectasis and a 7 mm left lower lobe nodule. Differential Diagnosis Urinary tract infection, chest wall pain, acute coronary syndrome-unlikely, pulmonary embolus, pleuritic pain, esophageal pain, gastrointestinal pain Narrative Course The patient states he has had burning on urination before and was treated successfully with Cipro in the past. His urine shows 1000 or greater glucose and positive nitrite but is otherwise normal and cultures not indicated. Nevertheless we will treat him with Cipro. He does have a urinary sphincter implant in the scrotum. He does not want admission. Diagnosis Primary Impression: Chest pain, atypical Additional Impressions: Urinary tract infection Poorly controlled diabetes mellitus Additional Instructions: As we discussed, the Cipro does affect the warfarin but he has had this before and you will need to follow-up with your primary care physician next week about this. Also your blood sugar is elevated tonight. Med/Other Pt SpecificInfo: Prescription(s) given Scripts Tramadol (Tramadol) 50 Mg Tab 50 MG PO Q4H Y for PAIN, #30 TAB 0 Refills Prov: Deangelo Grey MD 08/28/17 Ciprofloxacin (Cipro) 500 Mg Tab 500 MG PO BID for Infection for 10 Days, #20 TAB 0 Refills Prov: Deangelo Grey MD 08/28/17 Disposition: 01 DISCHARGE HOME Condition: Stable Deangelo Grey MD Aug 27, 2017 21:56
[2017-08-27 22:11] LABS: BILIRUBIN, URINE NEG (NEG); BLOOD, URINE NEG (NEG); GLUCOSE,URINE 1000 OR GREATER mg/dL (NEG); KETONE, URINE NEG (NEG); NITRITE,URINE POS (NEG); PH, URINE 6.5 (5.0-8.5); URINE COLOR YELLOW (YELLW/STRAW); URINE LEUKOCYTE ESTERASE NEG (NEG)
[2017-08-27 22:31] LABS: SQUAMOUS EPITHELIAL CELL URINE 0-5 /hpf (0-5)
[2017-08-27 22:32] LABS: WBC, URINE 0-2 /hpf (0-5)
[2017-08-27] MEDS ORDERED: IOHEXOL 350 MG/ML 10 ML VIAL (for RAD DIAG) IVCONTRAST ONE (22:46)
--- NOTE | 2017-08-27 22:50 | RADRPT ---
EXAM DATE/TIME: 08/27/2017 22:30 [facility] COMPARISON: C CT chest in 3 months recommended T THORAX W/O CONTRAST, April 01, 2016, 10:50. INDICATIONS : Sharp, stabbing anterior chest pain since this morning IV CONTRAST: 70 cc Omnipaque 350 (iohexol) IV RADIATION DOSE: 19.95 CTDIvol (mGy) MEDICAL HISTORY : Cardiovascular disease. Congestive heart failure. Hypertension.Diabetes, CVA SURGICAL HISTORY : CABG ENCOUNTER: Initial ACUITY: 1 day PAIN SCALE: 7/10 LOCATION: chest TECHNIQUE: Volumetric scanning of the chest was performed using a pulmonary embolism protocol MIP images were re constructed. Using automated exposure control and adjustment of the mA and/or kV according to patien t size, radiation dose was kept as low as reasonably achievable to obtain optimal diagnostic quality images. DICOM format image data is available electronically for review and comparison. Follow-up recommendations for detected pulmonary nodules are based at a minimum on nodule size and pa tient risk factors according to Fleischner Society Guidelines. FINDINGS: PULMONARY ARTERIES: No filling defects are seen in the pulmonary arteries through the segmental level. LUNGS: There is no consolidation or pneumothorax . Scattered groundglass densities lower lobes. 7 mm nodule left lower lobe. PLEURAE: There is no pleural thickening or pleural effusion. MEDIASTINUM: There is good visualization of the great vessels of the middle mediastinum. No evidence of mediastin al or hilar adenopathy/mass. Status post CABG. Mitral valve replacement. Coronary calcifications. Enl argement of the pulmonary trunk. MUSCULOSKELETAL: Within normal limits for patient age. MISCELLANEOUS: The visualized upper abdominal organs demonstrate no acute abnormality. CONCLUSION: 1. No evidence for pulmonary embolism. 2. Status post mitral valve replacement. 3. Scattered groundglass densities in the lung bases likely atelectasis. 4. 7 mm left lower lobe nodule. Shawn Friedman MD on August 27, 2017 at 22:45 Board Certified Radiologist. This report was verified electronically.
[2017-08-27 23:05] VITALS: BP 151/86; PULSE 78; RESP 18; O2SAT 100
--- NOTE | 2017-08-27 23:58 | EKG ---
Date Performed: 08/27/2017 Time Performed: 21:12:39 PTAGE: 77 years EKG: Sinus rhythm LEFT ANTERIOR FASCICULAR BLOCK ANTEROSEPTAL MYOCARDIAL INFARCTION ABNORMAL ECG PREVIOUS TRACING : 03/14/2017 00.09 Since the previous tracing, no significant change noted DOCTOR: Ben Almeida Interpretating Date/Time 08/27/2017 23:57:55
[2017-08-28] MEDS ORDERED: TRAM50TA PO (00:11)
[2017-08-28] MEDS ORDERED: CIPR-9 PO (00:11)
[2017-08-28 00:13] VITALS: BP 152/80; PULSE 76; RESP 18; O2SAT 99
[2017-08-28] MEDS ORDERED: MORPHINE SULFATE 4 MG/ML INJ IV PUSH ONE (00:15)
[2017-08-28] MEDS ORDERED: ONDANSETRON HCL 4 MG/2 ML VIAL IVP ONE (00:15)
[2017-08-28] MEDS ORDERED: INSULIN HUMAN REGULAR 1,000 UNITS/10 ML VIAL IV PUSH ONE (00:15)
[2017-08-28] MEDS ORDERED: CIPROFLOXACIN 500 MG TAB PO ONE (00:15)
[2017-08-28 01:20] VITALS: BP 158/82; PULSE 76; RESP 18; O2SAT 99
[2017-08-28 01:49] LABS: INTERNATIONAL NORMALIZED RATIO 1.6 RATIO; PROTHROMBIN TIME - PATIENT 16.6 SEC (9.8-11.6)
== END 2017-08-28 01:23 | disposition home or self-care (01) ==
LOC: PHED 21:03
DX: R07.89 Other chest pain (principal); N39.0 Urinary tract infection, site not specified; E11.65 Type 2 diabetes mellitus with hyperglycemia; I44.4 Left anterior fascicular block; I11.0 Hypertensive heart disease with heart failure; I50.9 Heart failure, unspecified; I25.10 Atherosclerotic heart disease of native coronary artery without angina pectoris; E78.2 Mixed hyperlipidemia; I48.91 Unspecified atrial fibrillation; Z85.46 Personal history of malignant neoplasm of prostate; Z86.73 Personal history of transient ischemic attack (TIA), and cerebral infarction without residual deficits; Z95.1 Presence of aortocoronary bypass graft; Z95.5 Presence of coronary angioplasty implant and graft; Z95.2 Presence of prosthetic heart valve; Z79.4 Long term (current) use of insulin; Z79.01 Long term (current) use of anticoagulants; Z79.899 Other long term (current) drug therapy
CPT/HCPCS: 71045; 71275; 80048; 81001; 82550; 83880; 84484; 85025; 85610; 93005; 96374; 96375; 99285; J1815; J2270; J2405; Q9967